=== PATIENT | male | born 1965 | race Caucasian/White ===

== ENCOUNTER → 2018-03-31 18:44 | Outpatient (CLI) | payer OTHER, SELFPAY ==
[2018-03-31 19:23] LABS: Cholesterol 179 mg/dL (200); High Density Lipoprotein 72 mg/dL; PSA,Total - Annual Screen 0.55 ng/mL (0.00-4.00); Triglycerides 74 mg/dL; Very Low Density Lipoprotein 15 mg/dL (5-40)
[2018-04-07 15:26] LABS: Cotinine Screen Blood None Detected (.); Nicotine Blood None Detected (.)
== END ==
PROVIDERS: Family Provider Family Medicine; PCP Family Medicine; Referring Provider Family Medicine; Visit Provider Family Medicine
DX: Z01.89 Encounter for other specified special examinations (principal); Z13.220 Encounter for screening for lipoid disorders; Z12.5 Encounter for screening for malignant neoplasm of prostate
CPT/HCPCS: 80061; 80323; 84153; G0103

== ENCOUNTER → 2020-12-12 15:04 | Outpatient (CLI) | payer BC, SELFPAY ==
[2020-12-12 17:48] LABS: Absolute Lymphocyte Count 3.35 X10^3/uL (0.83-4.51); Absolute Neutrophil Count 7.1 X10^3/uL (2.0-7.7); Basophil# 0.05 X10^3/uL; Basophil% 0.4 % (0-1); Eosinophil# 0.12 X10^3/uL; Hemoglobin 14.2 g/dL (13.0-16.5); Lymphocyte # 3.35 X10^3/ul (0.83-4.51); Lymphocyte % 28.9 % (19-41); Mean Corp Hgb Conc 33.8 g/dL (32-36); Mean Corpuscular Hgb 29.8 pg (27.0-32.0); Mean Corpuscular Volume 88.2 fL (80-94); Mean Platelet Vol. 9.8 fl (6.2-12.0); Monocyte# 0.89 X10^3/uL; Monocyte% 7.7 % (0-10); NRBC Flagged by Analyzer 0 % (0-5); Neutrophil # 7.12 X10^3/uL (2.7-7.7); Neutrophil % 61.5 % (47-70); Platelet Count 326 K/mm3 (150-450); RBC Distribution Width CV 12.4 % (11.6-14.6); RBC Distribution Width SD 40.4 fl (35.1-43.9); Red Blood Count 4.76 M/mm3 (4.6-6.2); White Blood Count 11.6 K/mm3 (4.4-11.0)
[2020-12-12 17:59] LABS: Erythrocyte Sedimentation Rate 19 mm/hr (0-20)
[2020-12-12 18:12] LABS: AST(SGOT) 20 U/L (15-37); Alanine Aminotransfer ALT/SGPT 35 U/L (16-61); Albumin, Serum 3.8 g/dL (3.2-5.0); Alkaline Phosphatase 89 U/L (45-117); Anion Gap 8 (5-15); BUN 15 mg/dL (7-18); BUN/Creat Ratio 13.3 RATIO (10-20); Calcium,Total 8.9 mg/dL (8.5-10.1); Chloride 102 mmol/L (98-107); Creatinine, Serum 1.13 mg/dL (0.70-1.30); EST Glomerular Filtration Rate 71 mL/min (>60); Est Glom Filt Rate - Afr Amer 86 mL/min (>60); Globulin 3.8 g/dL (2.2-4.2); Glucose 89 mg/dL (74-106); PSA,Total - Annual Screen 0.63 ng/mL (0.00-4.00); Protein, Total 7.6 g/dL (6.4-8.2); Rheumatoid Factor < 10.0 IU/mL (<15); Sodium Level 136 mmol/L (136-145)
[2020-12-15 09:34] LABS: ANTINUCLEAR ANTIBODIES DIRECT Negative (Negative)
== END ==
PROVIDERS: PCP Family Medicine; Referring Provider Family Medicine; Visit Provider Family Medicine
DX: M25.50 Pain in unspecified joint (principal); Z12.5 Encounter for screening for malignant neoplasm of prostate
CPT/HCPCS: 36415; 80053; 84153; 85025; 85652; 86038; 86431; G0103

== ENCOUNTER 2021-04-20 07:23 | Day surgery (SDC) | payer BC, SELFPAY ==
[2021-04-20] MEDS: Lactated Ringers 1,000 ML 15 ML IV (07:35)
[2021-04-20 07:42] VITALS: BP 124/82; PULSE 56; RESP 18; TEMP 36.3; O2SAT 96; BMI 33.8
--- NOTE | 2021-04-20 08:06 | H&P.OPEN ---
HPI - General HPI Narrative CELIA DURHAM, is a 56 M who presents for screening colonoscopy. Patient reports never having a colonoscopy in the past. He does not have any family history of colon cancer. He denies any abdominal pain or blood in his stool. [facility] Medical History (Updated 04/13/21 @ 15:03 by Grace Lee) Alcohol use Arthritis Chewing tobacco nicotine dependence Heartburn Wears contact lenses Home Medications ascorbic acid (vitamin C) [Vitamin C] 250 mg PO BID 04/13/21 [History Last Taken Unknown] aspirin [Baby Aspirin] 81 mg PO DAILY 04/13/21 [History Last Taken Unknown] cholecalciferol (vitamin D3) [Vitamin D3] 100 mcg PO DAILY 04/13/21 [History Last Taken Unknown] meloxicam 15 mg PO DAILY 04/13/21 [History Last Taken Unknown] multivitamin 1 tab PO DAILY 04/13/21 [History Last Taken Unknown] Allergy/AdvReac Type Severity Reaction Status Date / Time No Known Allergies Allergy Verified 04/20/21 07:42 Surgical History (Updated 04/13/21 @ 15:03 by Grace Lee) History of arthroplasty of both wrists History of nasal surgery Social History Smoking Status: Never smoker Past Medical/Surgical History Planned Operation Planned Operative Procedure/s: colonoscopy Previous Hospitalizations/Surgeries HX Hospitalizations: No Any Problems With Anesthesia: No You/Your Family Experience Fever (Hyperthermia) With Anes: No Cholinesterase deficiency: No Cardiovascular Hx Hypertension: No Respiratory Hx Sleep Apnea: No Hx Respiratory Tract Infection/Cold (presently): No Do You Snore Loudly (louder than talking or can be heard): No Do You Often Feel Tired/ Fatigued/ Sleepy Dring Daytime?: No Has Anyone Observed You Stop Breathing During Sleep?: No Result (for STOP score): Negative Smoking Status: Never smoker Gastrointestinal Special diet followed at home: No Neurological Does patient have nerve stimulator: No Miscellaneous Recent Exposure to Contagious Disease: No Allergies No Known Allergies Allergy (Verified 04/20/21 07:42) Discharge Is Pt Admitted From a [facility], or a [facility]: No Who Could Help: family After D/C, Where Do you Plan to Go: Return Home Vital Signs Vital Signs Vital Signs: 04/20/21 07:42 Temperature 97.3 F L Temperature Source Temporal Pulse Rate 56 L Respiratory Rate 18 Respiratory Pattern Normal Blood Pressure 124/82 H Blood Pressure Mean 96 Blood Pressure Source Monitor Blood Pressure Position Semi-Fowlers Blood Pressure Location Left Arm Pulse Ox 96 Oxygen Delivery Method Room Air Weight Weight: 235 lb 14.314 oz Body Mass Index (BMI) 33.8 Physical Exam Const alert and oriented x3 Resp normal respiratory effort and normal air movement Cardio regular rate and regular rhythm GI soft to palpation, non-tender and non-distended Assessment & Plan Assessment/Plan (1) Encounter for screening for malignant neoplasm of colon: PLAN: I explained endoscopy in detail to the patient. I explained the risks including but not limited to stroke or heart attack with anesthesia, perforation of the GI tract, bleeding, infection. I explained that any of these could necessitate further emergency surgery. The patient understands and all questions were answered sufficiently. The patient wishes to proceed with procedure. Paco Arciniega MD Pager: [phone] [address] [place] [address], [address] [place] [address] Office: Surgery Risks - Colonoscopy Risks Include but are not Limited To: Risks include but are not limited to: Bleeding, perforation requiring further surgery, inability to complete colonoscopy requiring barium enema.
[2021-04-20 08:30] VITALS: BP 112/74; BP 124/82; PULSE 79; RESP 18; TEMP 36.3; O2SAT 96
--- NOTE | 2021-04-20 08:30 | OP.COLON_ITS ---
Patient Name: True Quach Procedure Date: 04/20/2021 8:05 AM Date of : 1965 Age: 56 Procedure: Colonoscopy Indications: Screening for colorectal malignant neoplasm Providers: Paco Arciniega MD Referring MD: Paco Arciniega MD Medicines: Monitored Anesthesia Care Patient Profile: This is a 56 year old male. Refer to note in patient chart for documentation of history and physical. Last Colonoscopy: none. The patient's first colonoscopy is today. Complications: No immediate complications. Procedure: Pre-Anesthesia Assessment: - Prior to the procedure, a History and Physical was performed, and patient medications and allergies were reviewed. The patient's tolerance of previous anesthesia was also reviewed. The risks and benefits of the procedure and the sedation options and risks were discussed with the patient. All questions were answered, and informed consent was obtained. Prior Anticoagulants: The patient has taken no previous anticoagulant or antiplatelet agents. After reviewing the risks and benefits, the patient was deemed in satisfactory condition to undergo the procedure. After I obtained informed consent, the scope was passed under direct vision. Throughout the procedure, the patient's blood pressure, pulse, and oxygen saturations were monitored continuously. The pediatric colonoscope was introduced through the anus and advanced to the cecum, identified by appendiceal orifice and ileocecal valve. The colonoscopy was performed without difficulty. The patient tolerated the procedure well. The quality of the bowel preparation was good. Scope In: 8:15:40 AM Scope Withdrawal Time 0 hours 6 minutes 28 seconds Scope Out: 8:25:18 AM Total Procedure Duration Time 0 hours 9 minutes 38 seconds Findings: The entire examined colon appeared normal on direct and retroflexion views. Impression: - The entire examined colon is normal on direct and retroflexion views. - No specimens collected. Recommendation: - Discharge patient to home. - Resume previous diet. - Continue present medications. - Repeat colonoscopy in 10 years for screening purposes. Procedure Code(s): --- Professional --- 14246, Colonoscopy, flexible; diagnostic, including collection of specimen(s) by brushing or washing, when performed (separate procedure) Diagnosis Code(s): --- Professional --- Z12.11, Encounter for screening for malignant neoplasm of colon CPT copyright 2017 [employer]. All rights reserved. The codes documented in this report are preliminary and upon sander machine review may be revised to meet current compliance requirements. Paco Arciniega MD 04/20/2021 8:29:34 AM This report has been signed electronically. Number of Addenda: 0 Note Initiated On: 04/20/2021 8:05 AM
--- NOTE | 2021-04-20 08:30 | OP.CCLET_ITS ---
04/20/2021 Malvin Nagel [address] [place] [address] Re : Colonoscopy procedure for True Quach Dear Dr. Nagel This procedure was performed on Tuesday, April 20, 2021. My impressions and recommendations are as follows: Impressions : - The entire examined colon is normal on direct and retroflexion views. - No specimens collected. Recommendations : - Discharge patient to home. - Resume previous diet. - Continue present medications. - Repeat colonoscopy in 10 years for screening purposes. My findings are described in the full procedure note, which is enclosed. If I can be of further assistance, please feel free to contact me at Doctor phone number(s): , Work: . Sincerely, Paco Arciniega MD 04/20/2021 8:29:34 AM This report has been signed electronically.
[2021-04-20 08:35] VITALS: BP 122/80; BP 124/82; PULSE 60; RESP 18; O2SAT 95
[2021-04-20 08:40] VITALS: BP 124/82; BP 131/90; PULSE 63; RESP 18; O2SAT 95
[2021-04-20 08:45] VITALS: BP 112/74; BP 124/82; PULSE 48; RESP 18; TEMP 36.4; O2SAT 96
[2021-04-20 08:59] VITALS: BP 124/82
== END 2021-04-20 23:59 | disposition home or self-care (01) ==
LOC: EN 07:24 → AC 07:25
PROVIDERS: PCP Family Medicine; Referring Provider Surgery; Visit Provider Surgery
PROC: 0DJD8ZZ Inspection of Lower Intestinal Tract, Via Natural or Artificial Opening Endoscopic (ICD-10-PCS; CPT 45378; principal; 2021-04-20 08:25)
DX: Z12.11 Encounter for screening for malignant neoplasm of colon (principal)
CPT/HCPCS: 45378; 87426; C9803; J7120; J2405

== ENCOUNTER → 2021-12-21 | Outpatient (CLI) | payer BC, SELFPAY ==
[2021-12-21 10:02] LABS: Erythrocyte Sedimentation Rate 12 mm/hr (0-20)
[2021-12-21 10:04] LABS: Absolute Lymphocyte Count 2.69 X10^3/uL (0.83-4.51); Absolute Neutrophil Count 3.8 X10^3/uL (2.0-7.7); Basophil# 0.04 X10^3/uL; Basophil% 0.5 % (0-1); Eosinophil# 0.17 X10^3/uL; Eosinophils% 2.3 % (0-5); Hematocrit 43.6 % (40-54); Lymphocyte # 2.69 X10^3/ul (0.83-4.51); Mean Corp Hgb Conc 32.1 g/dL (32-36); Mean Corpuscular Hgb 28.9 pg (27.0-32.0); Mean Corpuscular Volume 90.1 fL (80-94); Mean Platelet Vol. 10.3 fl (6.2-12.0); Monocyte# 0.75 X10^3/uL; NRBC Flagged by Analyzer 0 % (0-5); Neutrophil # 3.81 X10^3/uL (2.7-7.7); Neutrophil % 50.9 % (47-70); Platelet Count 312 K/mm3 (150-450); RBC Distribution Width CV 12.7 % (11.6-14.6); RBC Distribution Width SD 42.2 fl (35.1-43.9); Red Blood Count 4.84 M/mm3 (4.6-6.2); White Blood Count 7.5 K/mm3 (4.4-11.0)
[2021-12-21 10:17] LABS: ALB/GLOB Ratio 1.2 RATIO (0.9-2.4); AST(SGOT) 28 U/L (15-37); Alanine Aminotransfer ALT/SGPT 38 U/L (16-61); Albumin, Serum 3.8 g/dL (3.2-5.0); Alkaline Phosphatase 79 U/L (45-117); Anion Gap 5 (5-15); BUN 22 mg/dL (7-18); BUN/Creat Ratio 20.6 RATIO (10-20); Calcium,Total 8.9 mg/dL (8.5-10.1); Chloride 106 mmol/L (98-107); Cholesterol 165 mg/dL (200); Creatinine, Serum 1.07 mg/dL (0.70-1.30); EST Glomerular Filtration Rate 75 mL/min (>60); Est Glom Filt Rate - Afr Amer 91 mL/min (>60); Ferritin 166 ng/mL (26-388); Globulin 3.3 g/dL (2.2-4.2); Glucose 118 mg/dL (74-106); High Density Lipoprotein 74 mg/dL; Iron 96 ug/dL (65-175); Magnesium 2.5 mg/dL (1.6-2.6); PSA,Total - Annual Screen 0.65 ng/mL (0.00-4.00); Potassium 4.9 mmol/L (3.5-5.1); Protein, Total 7.1 g/dL (6.4-8.2); Sodium Level 139 mmol/L (136-145); Thyroid Stim Hormone (TSH) 2.04 uIU/mL (0.358-3.74); Triglycerides 49 mg/dL; Uric Acid 5.5 mg/dL (3.5-7.2); Very Low Density Lipoprotein 10 mg/dL (5-40)
[2021-12-21 12:18] LABS: Vitamin B12 532 pg/mL (211-911); Vitamin D,25 Hydroxy 62.6 ng/mL
[2021-12-24 17:15] LABS: ANTINUCLEAR ANTIBODIES DIRECT Negative (Negative)
== END | disposition home or self-care (01) ==
LOC: MFPLAB 08:05
PROVIDERS: PCP Family Medicine; Referring Provider Family Medicine; Visit Provider Family Medicine
DX: G62.9 Polyneuropathy, unspecified (principal); M25.50 Pain in unspecified joint; Z13.220 Encounter for screening for lipoid disorders; Z12.5 Encounter for screening for malignant neoplasm of prostate
CPT/HCPCS: 36415; 80053; 80061; 82306; 82607; 82728; 83540; 83735; 84153; 84443; 84550; 85025; 85652; 86038; G0103

== ENCOUNTER 2022-03-16 13:12 | Observation (INO) | payer BC, SELFPAY ==
[2022-03-16] VITALS (11 sets, daily range): BP systolic 106–139; BP diastolic 65–89; PULSE 60–108; RESP 14–21; TEMP 36.1–37; O2SAT 94–98; BMI 33.8; BMI 32.7
--- NOTE | 2022-03-16 13:30 | EKG12_ITS ---
Test Reason : CP Blood Pressure : / mmHG Vent. Rate : 091 BPM Atrial Rate : 091 BPM P-R Int : 154 ms QRS Dur : 076 ms QT Int : 334 ms P-R-T Axes : 065 035 066 degrees QTc Int : 410 ms Normal sinus rhythm Normal ECG Confirmed by SUNITHA DIALLO, NOE ([id number]), manager editorial STEPHAN TY ([id number]) on 03/18/2022 1:20:37 PM Referred By: WALI/JEREMI Confirmed By:NOE HELTON MD
--- NOTE | 2022-03-16 13:35 | EDS_ITS ---
HPI History of Present Illness Chief Complaint: Shortness of Breath Narrative Narrative: 57-year-old male who denies significant past medical history with the exception of taking NSAIDs for arthritis presents with multiple complaints, but mainly feeling lightheaded this morning. He states he awoke around 9 hours ago and went to go to the bathroom. He felt very lightheaded and near syncopal. He denies any headache or chest pain. He states that he had a black, tarry bowel movement today. He denies any hematemesis. He went to urgent care where they performed an EKG and noted his tachycardia and sent him to the emergency department for further evaluation. He states that as long as he is sitting and not standing or walking, he is not lightheaded. He also felt short of breath, and when he went back to bed or walked from the bathroom, only 15 feet, he felt very short of breath. States he feels as if he cannot take a deep breath. [facility] Medical History Alcohol use Arthritis Chewing tobacco nicotine dependence Heartburn Wears contact lenses Home Medications ascorbic acid (vitamin C) 250 mg tablet (Vitamin C) 250 mg PO BID 04/13/21 [History Last Taken Unknown] aspirin 81 mg chewable tablet 81 mg PO DAILY 04/13/21 [History Last Taken Unknown] cholecalciferol (vitamin D3) 50 mcg (2,000 unit) capsule (Vitamin D3) 100 mcg PO DAILY 04/13/21 [History Last Taken Unknown] meloxicam 15 mg tablet 15 mg PO DAILY 04/13/21 [History Last Taken Unknown] multivitamin 1 tab PO DAILY 04/13/21 [History Last Taken Unknown] Allergy/AdvReac Type Severity Reaction Status Date / Time No Known Allergies Allergy Verified 03/16/22 13:13 Family History (Updated 03/16/22 @ 16:[address] Abdoul Bah DO) Father Peptic ulcer disease Surgical History History of arthroplasty of both wrists History of nasal surgery Social History (Updated 03/16/22 @ 16:[address] Abdoul Bah DO) Smoking Status: Never smoker Smokeless tobacco user: chewing tobacco alcohol intake: current alcohol intake frequency: 0-2 drinks per day ROS ROS ED ROS Narrative Constitutional: No fever, no chills. HEENT: No sore throat. No neck pain. No loss of vision. No rhinorrhea. Cardiovascular: No chest pain. No palpitations. No pedal edema. Respiratory: No cough, positive shortness of breath. Abdominal: No abdominal pain. No nausea. No vomiting. No hematemesis. Positive black, tarry stool this morning. Genitourinary: No dysuria. No hematuria. Musculoskeletal: No myalgias. No arthralgias. Neurologic: No headaches. No dizziness. Positive near syncope/lightheadedness. Skin: No rash. No change in color. Psychiatric: No depression. No anxiety. EXAM Physical Exam Narrative Exam Narrative: Afebrile. Vital signs noted. HEENT: Normocephalic. Atraumatic. PERRL, EOMI. Neck soft and supple. No point tenderness or step off. Cardiovascular: Positive tachycardia. No murmurs, rubs, or gallops appreciated. Respiratory: No tachypnea. Lungs clear to auscultation bilaterally. Gastrointestinal: Abdomen soft, nontender, with normoactive bowel sounds. No rebound or guarding. Neurological: Awake. Alert. Nonfocal, nonlateralizing. Skin: No rash. Normal color. No pallor. Musculoskeletal: No pedal edema. Full range of motion extremities. Const Vital Signs: 03/16/22 13:13 03/16/22 13:35 03/16/22 14:52 Temperature 97 F L Temperature Source Temporal Pulse Rate 108 H Pulse Rate [Lying] 81 Pulse Rate [Sitting (for 1 minute prior to obtaining)] 90 Respiratory Rate 14 Respiratory Effort Normal Non-Labored Respiratory Depth Normal Respiratory Pattern Normal Blood Pressure 139/89 H Blood Pressure [Lying] 129/73 H Blood Pressure [Sitting (for 1 minute prior to obtaining)] 121/77 H Blood Pressure [Standing (for 1 minute prior to obtaining)] 119/89 H Blood Pressure Mean 105 Blood Pressure Mean [Lying] 91 Blood Pressure Mean [Sitting (for 1 minute prior to obtaining)] 91 Blood Pressure Mean [Standing (for 1 minute prior to obtaining)] 99 Pulse Ox 98 Oxygen Delivery Method Room Air Room Air 03/16/22 15:12 03/16/22 15:54 Temperature 97.8 F Temperature Source Temporal Pulse Rate 85 82 Pulse Rate [Lying] Pulse Rate [Sitting (for 1 minute prior to obtaining)] Respiratory Rate 21 H 20 H Respiratory Effort Respiratory Depth Respiratory Pattern Blood Pressure 135/87 H 135/87 H Blood Pressure [Lying] Blood Pressure [Sitting (for 1 minute prior to obtaining)] Blood Pressure [Standing (for 1 minute prior to obtaining)] Blood Pressure Mean 103 103 Blood Pressure Mean [Lying] Blood Pressure Mean [Sitting (for 1 minute prior to obtaining)] Blood Pressure Mean [Standing (for 1 minute prior to obtaining)] Pulse Ox 98 98 Oxygen Delivery Method Room Air Room Air MDM MDM MDM Narrative Medical decision making narrative: In the differential diagnosis is upper GI bleeding secondary to gastritis from NSAID use versus peptic ulcer disease versus lower on the differential pulmonary embolism because of his shortness of breath, versus anemia. Comprehensive work- up was pursued. EKG from outside facility was obtained and reviewed which shows sinus tachycardia at [address] changes. This was from the urgent care and interpreted by myself. Additionally, I obtained an EKG here which demonstrates normal sinus rhythm at 91 bpm without ectopy or acute ST changes, no STEMI. I will work him up with CBC, CMP, lipase, troponin, D-dimer, orthostatics, and perform a rectal examination. I do not feel CT imaging is indicated currently as he is not having any abdominal pain. I reviewed the patient's laboratory work, he has a slightly elevated white count of 14.4 which I think is nonspecific, hemoglobin stable at 10.7, platelet count normal at 270. D-dimer is normal at less than 0.27, so I do not think that his shortness of breath is secondary to a pulmonary embolism. His tachycardia has also resolved. In review of his CMP has a normal sodium of 141, potassium normal at 4.9, BUN elevated at 72 with a creatinine of 0.98. This is concerning for upper GI bleed. Glucose is 114 with a normal anion gap of 8. High- sensitivity troponin is under the limit and normal at 51. Lipase normal at 117. Chaperoned rectal examination did reveal black stool which was Hemoccult positive. Patient states that he had Dr. Arciniega perform his colonoscopy in the past. I discussed this with him and he is willing to be consulted as needed to perform endoscopy. Although his orthostatics are negative, given his black Hemoccult positive stool, patient will be discussed with the hospitalist for admission. I discussed the patient with Dr. Bah. Patient is in stable co ndition. Lab Data Attestation: I reviewed the patient's lab results. Labs: Laboratory Results - last 24 hr 03/16/22 03/16/22 03/16/22 14:00 14:00 14:10 WBC 14.4 H RBC 3.65 L Hgb 10.7 L Hct 32.2 L MCV 88.2 MCH 29.3 MCHC 33.2 RDW Std Deviation 39.2 RDW Coeff of Kandis 12.1 Plt Count 270 MPV 9.4 Immature Gran % (Auto) 0.600 Neut % (Auto) 74.5 H Lymph % (Auto) 17.8 L [place] % (Auto) 6.6 Eos % (Auto) 0.2 Baso % (Auto) 0.3 Absolute Neuts (auto) 10.7 H Absolute Lymphs (auto) 2.56 Nucleated RBC % 0 D-Dimer Quant (PE/DVT) < 0.27 L Sodium 141 Potassium 4.9 Chloride 110 H Carbon Dioxide 23.0 Anion Gap 8 BUN 72 H Creatinine 0.98 Estim Creat Clear Calc 83.80 Est GFR (MDRD) Af Amer 100 Est GFR (MDRD) Non-Af 83 BUN/Creatinine Ratio 73.2 H Glucose 114 H Calcium 8.9 Total Bilirubin 0.20 AST 15 ALT 25 Alkaline Phosphatase 62 Troponin I High Sens 51 Total Protein 6.3 L Albumin 3.3 Globulin 3.0 Albumin/Globulin Ratio 1.1 Lipase 117 Radiography Diagnostic Testing: Clinical Impression(s) from Imaging Studies Chest X-Ray 03/16/22 15:15 IMPRESSION: No radiographic evidence of acute cardiopulmonary disease. Electronically Signed: Dagoberto Keys MD at 15:48 EST , Discharge Plan Dx/Rx/DC Orders Clinical Impression: GI bleed, Melena, Lightheadedness Disposition Disposition: [facility]
[2022-03-16 14:08] LABS: Absolute Lymphocyte Count 2.56 X10^3/uL (0.83-4.51); Absolute Neutrophil Count 10.7 X10^3/uL (2.0-7.7); Basophil# 0.04 X10^3/uL; Basophil% 0.3 % (0-1); Eosinophil# 0.03 X10^3/uL; Eosinophils% 0.2 % (0-5); Hematocrit 32.2 % (40-54); Hemoglobin 10.7 g/dL (13.0-16.5); Lymphocyte # 2.56 X10^3/ul (0.83-4.51); Lymphocyte % 17.8 % (19-41); Mean Corp Hgb Conc 33.2 g/dL (32-36); Mean Corpuscular Hgb 29.3 pg (27.0-32.0); Mean Corpuscular Volume 88.2 fL (80-94); Mean Platelet Vol. 9.4 fl (6.2-12.0); Monocyte# 0.95 X10^3/uL; Monocyte% 6.6 % (0-10); NRBC Flagged by Analyzer 0 % (0-5); Neutrophil # 10.71 X10^3/uL (2.7-7.7); Neutrophil % 74.5 % (47-70); Platelet Count 270 K/mm3 (150-450); RBC Distribution Width CV 12.1 % (11.6-14.6); RBC Distribution Width SD 39.2 fl (35.1-43.9); Red Blood Count 3.65 M/mm3 (4.6-6.2); White Blood Count 14.4 K/mm3 (4.4-11.0)
[2022-03-16] MEDS: 0.9% Normal Saline 1,000 ML 1000 ML IV (14:15)
[2022-03-16 14:31] LABS: ALB/GLOB Ratio 1.1 RATIO (0.9-2.4); AST(SGOT) 15 U/L (15-37); Alanine Aminotransfer ALT/SGPT 25 U/L (16-61); Albumin, Serum 3.3 g/dL (3.2-5.0); Alkaline Phosphatase 62 U/L (45-117); Anion Gap 8 (5-15); BUN 72 mg/dL (7-18); BUN/Creat Ratio 73.2 RATIO (10-20); Calcium,Total 8.9 mg/dL (8.5-10.1); Chloride 110 mmol/L (98-107); Creatinine, Serum 0.98 mg/dL (0.70-1.30); EST Glomerular Filtration Rate 83 mL/min (>60); Est Glom Filt Rate - Afr Amer 100 mL/min (>60); Glucose 114 mg/dL (74-106); Lipase 117 U/L (73-393); Potassium 4.9 mmol/L (3.5-5.1); Protein, Total 6.3 g/dL (6.4-8.2); Sodium Level 141 mmol/L (136-145); Troponin-I HS 51 pg/mL (3.0-78.0)
[2022-03-16 14:33] LABS: D-Dimer Quantitative (DVT/PE) < 0.27 FEU/ug/m (0.27-0.49)
--- NOTE | 2022-03-16 15:15 | RAD_ITS ---
EXAM: XR CHEST, 1 VIEW CLINICAL INDICATION: shortness of breath TECHNIQUE: Frontal view of the chest. This report was created using Wear report generation technology. COMPARISON: None. FINDINGS: LUNGS AND PLEURAL SPACES: Unremarkable. No consolidation or edema. No pneumothorax. No effusion. HEART: Unremarkable. Cardiac silhouette not enlarged. MEDIASTINUM: Central airways and mediastinal contour are unremarkable. BONES/JOINTS: Unremarkable. SOFT TISSUES: Unremarkable. RAD/Chest 1 View (Portable) IMPRESSION: No radiographic evidence of acute cardiopulmonary disease. Electronically Signed: Dagoberto Keys MD at 15:48 EST ,
--- NOTE | 2022-03-16 16:07 | PCM.HP.STD ---
[facility] - General General Date of Service: 03/16/22 Chief Complaint: Shortness of breath. weakness. HPI Narrative CELIA DURHAM, is a 57 M who presents with shortness of breath and weakness. The symptoms began today. Was feeling well yesterday but did have some abdominal discomfort. But then the symptoms began today. Patient did have dark tarry stools which she does not have normally. Denies any abdominal pain today. Presented here in his hemoglobin was 10.7, back in December, his hemoglobin was 14. Patient does take aspirin and meloxicam but takes ibuprofen rarely. Patient did have a positive Hemoccult in the emergency room. Patient has never had a GI bleed before. Many years ago, patient did have severe epistaxis due to a burst blood vessels that did require surgery but denies any other bleeding issues since then. [facility] Medical History Alcohol use Arthritis Chewing tobacco nicotine dependence Heartburn Wears contact lenses Home Medications ascorbic acid (vitamin C) 250 mg tablet (Vitamin C) 250 mg PO BID 04/13/21 [History Last Taken Unknown] aspirin 81 mg chewable tablet 81 mg PO DAILY 04/13/21 [History Last Taken Unknown] cholecalciferol (vitamin D3) 50 mcg (2,000 unit) capsule (Vitamin D3) 100 mcg PO DAILY 04/13/21 [History Last Taken Unknown] meloxicam 15 mg tablet 15 mg PO DAILY 04/13/21 [History Last Taken Unknown] multivitamin 1 tab PO DAILY 04/13/21 [History Last Taken Unknown] Allergy/AdvReac Type Severity Reaction Status Date / Time No Known Allergies Allergy Verified 03/16/22 13:13 Family History (Updated 03/16/22 @ 16:[address] Abdoul Bah DO) Father Peptic ulcer disease Surgical History History of arthroplasty of both wrists History of nasal surgery Social History (Updated 03/16/22 @ 16:[address] Abdoul Bah DO) Smoking Status: Never smoker Smokeless tobacco user: chewing tobacco alcohol intake: current alcohol intake frequency: 0-2 drinks per day ROS ROS Narrative All review of systems were negative except as mentioned above in the history of present illness and the other review of systems. Vital Signs Vital Signs Vital Signs: 03/16/22 13:13 03/16/22 13:35 03/16/22 14:52 Temperature 36.1 C L Temperature Source Temporal Pulse Rate 108 H Pulse Rate [Lying] 81 Pulse Rate [Sitting (for 1 minute prior to obtaining)] 90 Respiratory Rate 14 Respiratory Effort Normal Non-Labored Respiratory Depth Normal Respiratory Pattern Normal Blood Pressure 139/89 H Blood Pressure [Lying] 129/73 H Blood Pressure [Sitting (for 1 minute prior to obtaining)] 121/77 H Blood Pressure [Standing (for 1 minute prior to obtaining)] 119/89 H Blood Pressure Mean 105 Blood Pressure Mean [Lying] 91 Blood Pressure Mean [Sitting (for 1 minute prior to obtaining)] 91 Blood Pressure Mean [Standing (for 1 minute prior to obtaining)] 99 Pulse Ox 98 Oxygen Delivery Method Room Air Room Air 03/16/22 15:12 03/16/22 15:54 Temperature 36.6 C Temperature Source Temporal Pulse Rate 85 82 Pulse Rate [Lying] Pulse Rate [Sitting (for 1 minute prior to obtaining)] Respiratory Rate 21 H 20 H Respiratory Effort Respiratory Depth Respiratory Pattern Blood Pressure 135/87 H 135/87 H Blood Pressure [Lying] Blood Pressure [Sitting (for 1 minute prior to obtaining)] Blood Pressure [Standing (for 1 minute prior to obtaining)] Blood Pressure Mean 103 103 Blood Pressure Mean [Lying] Blood Pressure Mean [Sitting (for 1 minute prior to obtaining)] Blood Pressure Mean [Standing (for 1 minute prior to obtaining)] Pulse Ox 98 98 Oxygen Delivery Method Room Air Room Air Weight Weight: 107 kg Body Mass Index (BMI) 33.8 Physical Exam Narrative - Physical Exam General: Alert, Oriented x3, Cooperative HEENT: Atraumatic, PERRLA, EOMI, Normocephalic Oral: Moist Mucosa, No Gingival or Mucosal Lesions/ Ulcerations Neck: Supple, No JVD, Negative Carotid Bruits Lungs: Clear to auscultation, Normal air movement Cardiovascular: Regular rate, Normal S1, Normal S2, No murmurs Abdomen: Bowel Sounds Present, Soft, Non Tender, Non-Distended, No Hepato-splenomegaly Extremities: No clubbing, No cyanosis, No edema, Capillary Refill Less than 3 Seconds Skin: No rashes, No breakdown Musculoskeletal: No Tenderness to Palpation of Joints or Extremities Neurological: Neuro grossly intact Psych/Mental Status: Normal Affect, Appropriate Results Lab / Micro Data Attestation: I reviewed the patient's lab results. Result Diagrams: 03/16/22 14:00 03/16/22 14:00 Labs: Laboratory Results - last 24 hr 03/16/22 14:00: WBC 14.4 H, RBC 3.65 L, Hgb 10.7 L, Hct 32.2 L, MCV 88.2, MCH 29.3, MCHC 33.2, RDW Std Deviation 39.2, RDW Coeff of Kandis 12.1, Plt Count 270, MPV 9.4, Immature Gran % (Auto) 0.600, Neut % (Auto) 74.5 H, Lymph % (Auto) 17.8 L, [place] % (Auto) 6.6, Eos % (Auto) 0.2, Baso % (Auto) 0.3, Absolute Neuts (auto) 10.7 H, Absolute Lymphs (auto) 2.56, Nucleated RBC % 0 03/16/22 14:00: Sodium 141, Potassium 4.9, Chloride 110 H, Carbon Dioxide 23.0, Anion Gap 8, BUN 72 H, Creatinine 0.98, Estim Creat Clear Calc 83.80, Est GFR (MDRD) Af Amer 100, Est GFR (MDRD) Non-Af 83, BUN/Creatinine Ratio 73.2 H, Glucose 114 H, Calcium 8.9, Total Bilirubin 0.20, AST 15, ALT 25, Alkaline Phosphatase 62, Troponin I High Sens 51, Total Protein 6.3 L, Albumin 3.3, Globulin 3.0, Albumin/Globulin Ratio 1.1, Lipase 117 03/16/22 14:10: D-Dimer Quant (PE/DVT) < 0.27 L Micro: Microbiology 03/16/22 15:17 Stool Stool Occult Blood (BASIM) - Final Occult Blood Positive EKG Initial EKG: Attestation: I personally reviewed and interpreted this EKG as follows: Prior EKG tracings: available for review EKG Rhythm Intrepretation: Sinus Rhythm Radiology Impression Chest X-Ray 03/16/22 15:15 IMPRESSION: No radiographic evidence of acute cardiopulmonary disease. Electronically Signed: Dagoberto Keys MD at 15:48 EST Reading Location ID and State: [facility] / [place] , Service support , Assessment & Plan Assessment/Plan (1) GI bleed: PLAN: Positive Hemoccult Suspected upper. Patient had a normal colonoscopy back on April 20, 2021. Dr. Arciniega was contacted by ED and will see the patient in consultation. Anticipate endoscopy the 6 for additional surgery merits of the timing. Start pantoprazole IV 40 mg twice daily Full liquid diet for now Hold meloxicam and aspirin (2) Acute blood loss anemia: PLAN: Hemoglobin was 14 back in December and is now 10.7. Given his symptomatology, I suspect this is all acute Monitor for now. No needs transfusion was hemoglobin less than or equal to 7. PLAN: Plan Chronic stable conditions Arthritis: Hold meloxicam. As needed acetaminophen and oxycodone VTE prophylaxis with SCDs. Chemical prophylaxis contraindicated with GI bleed. Charges/Coding Visit Charges Inpatient E&M: 10797 Init Hosp L2
--- NOTE | 2022-03-16 16:08 | NURSING ---
MED SURG JOPPERI UPPER GI BLEED
[2022-03-16] MEDS: 0.9% Normal Saline 1,000 ML 150 ML IV ×2 (17:57→20:52)
--- NOTE | 2022-03-16 18:52 | EX.PCM.CON.S ---
Assessment & Plan Assessment/Plan (1) GI bleed: (2) Melena: PLAN: Plan Patient was lightheaded and had melanotic stools earlier today. I discussed EGD with the patient. I explained endoscopy in detail to the patient. I explained the risks including but not limited to stroke or heart attack with anesthesia, perforation of the GI tract, bleeding, infection. I explained that any of these could necessitate further emergency surgery. The patient understands and all questions were answered sufficiently. The patient wishes to proceed with procedure. Paco Arciniega MD Pager: [facility] [address] [place] [address], [address] [place] [address] Office: HPI Consult Data Date of Consult: 03/16/22 HPI Narrative HPI Narrative: CELIA DURHAM, is a 57 M who presents with melena. Patient had black bowel movements this morning. He does describe some indigestion and he does take aspirin. He has not had any black stools prior to this. He had a colonoscopy recently. He denies any nausea or vomiting. Denies any epigastric pain. [facility] Medical History Alcohol use Arthritis Chewing tobacco nicotine dependence GERD (gastroesophageal reflux disease) Heartburn Non-smoker Rheumatoid arthritis Wears contact lenses Home Medications ascorbic acid (vitamin C) 250 mg tablet (Vitamin C) 500 mg PO DAILY vitamin 04/13/21 [History Last Taken Unknown] aspirin 81 mg chewable tablet 81 mg PO DAILY antiplatelet 04/13/21 [History Last Taken 03/16/22 07:30] cholecalciferol (vitamin D3) 50 mcg (2,000 unit) capsule (Vitamin D3) 125 mcg PO DAILY vitamin 04/13/21 [History Last Taken 03/16/22 07:30] meloxicam 15 mg tablet 15 mg PO DAILY arthritis 04/13/21 [History Last Taken 03/16/22 07:30] multivitamin 1 tab PO DAILY vitamin 04/13/21 [History Last Taken 03/16/22 07:30] melatonin 10 mg tablet 15 mg PO QHS sleep 03/16/22 [History Last Taken 03/15/22 22:25] Allergy/AdvReac Type Severity Reaction Status Date / Time No Known Allergies Allergy Verified 03/16/22 13:13 Family History (Updated 03/16/22 @ 16:[address] Abdoul Bah DO) Father Peptic ulcer disease Surgical History History of arthroplasty of both wrists History of nasal surgery Social History (Updated 03/16/22 @ 16:[address] Abdoul Bah DO) Smoking Status: Never smoker Smokeless tobacco user: chewing tobacco alcohol intake: current alcohol intake frequency: 0-2 drinks per day ROS Constitutional Constitutional: Denies anorexia, chills or fatigue Eyes Eyes: Denies blurry vision ENT HEENT: Denies abnormal hearing Cardiovascular Cardiovascular: Denies chest pain Respiratory/Chest Respiratory/Chest: Denies cough or dyspnea Gastrointestinal Gastrointestinal: Reports melena; Denies abdominal pain, change in bowel habits, diarrhea, nausea, rectal bleeding or vomiting Genitourinary Genitourinary: Denies change in urinary stream Musculoskeletal Musculoskeletal: Denies back pain Integumentary Integumentary: Denies jaundice Neurologic Neurologic: Denies dizziness Psychiatric Psychiatric: Denies anxiety Endocrine Endocrinology: Denies heat intolerance Lab / Micro Data Result Diagrams: 03/16/22 14:00 03/16/22 14:00 Labs: Laboratory Results - last 24 hr 03/16/22 14:00: WBC 14.4 H, RBC 3.65 L, Hgb 10.7 L, Hct 32.2 L, MCV 88.2, MCH 29.3, MCHC 33.2, RDW Std Deviation 39.2, RDW Coeff of Kandis 12.1, Plt Count 270, MPV 9.4, Immature Gran % (Auto) 0.600, Neut % (Auto) 74.5 H, Lymph % (Auto) 17.8 L, [place] % (Auto) 6.6, Eos % (Auto) 0.2, Baso % (Auto) 0.3, Absolute Neuts (auto) 10.7 H, Absolute Lymphs (auto) 2.56, Nucleated RBC % 0 03/16/22 14:00: Sodium 141, Potassium 4.9, Chloride 110 H, Carbon Dioxide 23.0, Anion Gap 8, BUN 72 H, Creatinine 0.98, Estim Creat Clear Calc 83.80, Est GFR (MDRD) Af Amer 100, Est GFR (MDRD) Non-Af 83, BUN/Creatinine Ratio 73.2 H, Glucose 114 H, Calcium 8.9, Total Bilirubin 0.20, AST 15, ALT 25, Alkaline Phosphatase 62, Troponin I High Sens 51, Total Protein 6.3 L, Albumin 3.3, Globulin 3.0, Albumin/Globulin Ratio 1.1, Lipase 117 03/16/22 14:10: D-Dimer Quant (PE/DVT) < 0.27 L Micro: Microbiology 03/16/22 15:17 Stool Stool Occult Blood (BASIM) - Final Occult Blood Positive Radiology Impression Chest X-Ray 03/16/22 15:15 IMPRESSION: No radiographic evidence of acute cardiopulmonary disease. Electronically Signed: Dagoberto Keys MD at 15:48 EST ,
--- NOTE | 2022-03-16 19:20 | IMM_PTH ---
PATIENT: CEILA DURHAM LOC: MS3 U#:[id number] AGE/SX: 57/M RO[place]: [facility] [place] RE03/16/[address]: Dr. Chacha Obrien DO : 1965 BED: 1 DIS: 03/17/2022 SPEC #: [id number] RECD: 03/19/22 07:27 STATUS: ANIL REQ #: [id number] ROSA ISELA: 03/16/22 19:[address]: Paco Arciniega DEPT: IMMUNOHISTOCHEMISTRY RECD BY: Regina Velez ENTERED: 03/19/22 07:28 SP TYPE: IMMUNO OTHR DR: MD Dr. Abdoul Newsome DO Dr. Kathryn Lee, DO Tissues: A - Stomach, NOS Procedures: H Pylori (initial) PHYSICIAN & INSTITUTION [place] [address] SPECIMEN INFORMATION: Tissue Source: A ? Antrum biopsy Clinical Info: GI bleed Specimen Number: [id number] CPT code: 03895 METHODOLOGY: Deparaffinized sections of prefer/formalin-fixed tissue or PAP/DQ stained slides are incubated with monoclonal/polyclonal antibodies/oligonucleotide probes. Localization is made via biotin free immunoperoxidase method. Appropriate controls are performed and reacted as expected. Results on target cell population are indicated in the following table: RESULTS: ANTIBODY / CLONE RESULT Block A H Pylori (polyclonal) negative These tests were developed and their performance characteristics determined by [facility]. They may not have been cleared or approved by the U.S. Food and Drug Administration. The FDA has determined that such clearance or approval is not necessary. The above immunohistochemical/dualISH markers are ordered and reviewed by the Pathologist. INTERPRETATION: A. Antrum, biopsy: Negative for Helicobacter pylori organisms. AM:ирина 03/20/2022
--- NOTE | 2022-03-16 19:20 | EGD_PTH ---
PATIENT: CELIA DURHAM LOC: MS3 U#:[id number] AGE/SX: 57/M [place] [facility] [place] RE03/16/[address]: Dr. Chacha Obrien DO : 1965 BED: 1 DIS: 03/17/2022 SPEC #: [id number] RECD: 03/16/22 20:06 STATUS: ANIL REJh #: [id number] ROSA ISELA: 03/16/22 19:[address]: Paco Arciniega DEPT: SURGICAL PATHOLOGY RECD BY: Tomeka Cardona ENTERED: 03/18/22 11:58 SP TYPE: EGD BIOPSY OTHR DR: MD Dr. Fer Lopez MD Dr. Eric Jopperi, DO Dr. Kathryn Lee, DO Tissues: A - Gastric mucous membrane B - Stomach, NOS Procedures: Surgery Specimen Level IV Comments: @ Ordering doctor for SUIV edited from to @ by BOWEN at 03/19/22726 @ Submitting doctor edited from to @ by RGOOD at 03/19/22726 HEADER OPERATION: EGD with biopsies (MAC) PRE-OP DIAGNOSIS: GI bleed TISSUE SUBMITTED: A ? Antrum biopsy for H. pylori and path, B ? Gastroesophageal junction biopsy MICROSCOPIC DIAGNOSIS A. Antrum, biopsy: Mild gastritis. See microscopic description and comment. B. Gastroesophageal junction, biopsy: Fragments of squamous mucosa with moderate chronic inflammation. SJ:charlette 03/19/2022 COMMENT A. The results of immunohistochemistry for Helicobacter pylori will be reported separately ([id number]). MICROSCOPIC DESCRIPTION Slides are reviewed. A. The specimen shows fragments of gastric mucosa with chronic inflammatory cell infiltrates in the lamina propria consisting of lymphocytes and plasma cells, consistent with mild chronic gastritis. GROSS DESCRIPTION A - Received in fixative is one container labeled with the patient's name and designated antrum biopsy. The specimen consists of two irregular fragments of light greene soft tissue that in aggregate measure 0.6 x 0.3 x 0.1 cm. The specimen is totally submitted in one cassette. B - Received in fixative is one container labeled with the patient's name and designated GE junction biopsy. The specimen consists of multiple irregular fragments of light greene soft tissue that in aggregate measure 0.8 x 0.3 x 0.1 cm. The specimen is totally submitted in one cassette. / SJ:rg 03/18/2022 TC:3 CPT: 28159 x2
--- NOTE | 2022-03-16 19:55 | OP.EGD_ITS ---
Patient Name: True Quach Procedure Date: 03/16/2022 7:28 PM Date of : 1965 Age: 57 Procedure: Upper GI endoscopy Indications: Melena Providers: Paco Arciniega MD Medicines: Monitored Anesthesia Care Patient Profile: This is a 57 year old male. Refer to note in patient chart for documentation of history and physical. Complications: No immediate complications. Estimated blood loss: Minimal. Procedure: Pre-Anesthesia Assessment: - Prior to the procedure, a History and Physical was performed, and patient medications and allergies were reviewed. The patient's tolerance of previous anesthesia was also reviewed. The risks and benefits of the procedure and the sedation options and risks were discussed with the patient. All questions were answered, and informed consent was obtained. Prior Anticoagulants: The patient has taken aspirin. After reviewing the risks and benefits, the patient was deemed in satisfactory condition to undergo the procedure. After obtaining informed consent, the endoscope was passed under direct vision. Throughout the procedure, the patient's blood pressure, pulse, and oxygen saturations were monitored continuously. The gastroscope was introduced through the mouth, and advanced to the third part of duodenum. The upper GI endoscopy was accomplished without difficulty. The patient tolerated the procedure well. Scope In: 7:41:55 PM Scope Out: 7:49:10 PM Total Procedure Duration Time 0 hours 7 minutes 15 seconds Findings: Esophagitis with bleeding was found at the gastroesophageal junction. Biopsies were taken with a cold forceps for histology. Striped mildly erythematous mucosa without bleeding was found in the prepyloric region of the stomach. Biopsies were taken with a cold forceps for Helicobacter pylori testing. The examined duodenum was normal. Impression: - Esophagitis. Biopsied. - Erythematous mucosa in the prepyloric region of the stomach. Biopsied. - Normal examined duodenum. Recommendation: - [facility] care. - Resume previous diet. - Continue present medications. - Await pathology results. Procedure Code(s): --- Professional --- 44702, Esophagogastroduodenoscopy, flexible, transoral; with biopsy, single or multiple Diagnosis Code(s): --- Professional --- K20.9, Esophagitis, unspecified K31.89, Other diseases of stomach and duodenum K92.1, Melena (includes Hematochezia) CPT copyright 2017 [employer]. All rights reserved. The codes documented in this report are preliminary and upon cook soup review may be revised to meet current compliance requirements. Paco Arciniega MD 03/16/2022 7:55:23 PM This report has been signed electronically. Number of Addenda: 0 Note Initiated On: 03/16/2022 7:28 PM
--- NOTE | 2022-03-16 19:56 | OP.CCLET_ITS ---
03/16/2022 Malvin Nagel [address] [place] [address] Re : Upper GI endoscopy procedure for True Quach Dear Dr. Nagel This procedure was performed on Wednesday, March 16, 2022. My impressions and recommendations are as follows: Impressions : - Esophagitis. Biopsied. - Erythematous mucosa in the prepyloric region of the stomach. Biopsied. - Normal examined duodenum. Recommendations : - [facility] to [facility]. - Resume previous diet. - Continue present medications. - Await pathology results. My findings are described in the full procedure note, which is enclosed. If I can be of further assistance, please feel free to contact me at Doctor phone number(s): , Work: . Sincerely, Paco Arciniega MD 03/16/2022 7:55:23 PM This report has been signed electronically.
--- NOTE | 2022-03-16 19:57 | PCM.PN.BLA ---
Progress Note I performed EGD this evening. No ulcer or bleeding in stomach or duodenum. There was an irritated area in the GE junction. Unsure if malignant or if it is esophagitis. Biopsies were obtained. Will order diet and PPI/Carafate. If Hb ok and orthostatics are ok he may go home in AM and follow up in my office for path. Paco Arciniega
[2022-03-16] MEDS: Sucralfate 1 GM Tablet PO (20:52)
[2022-03-16] MEDS: Ascorbic Acid 500 MG Tablet PO (20:53)
[2022-03-16 21:37] LABS: Absolute Lymphocyte Count 5.38 X10^3/uL (0.83-4.51); Absolute Neutrophil Count 6.6 X10^3/uL (2.0-7.7); Basophil# 0.05 X10^3/uL; Basophil% 0.4 % (0-1); Eosinophil# 0.13 X10^3/uL; Hematocrit 28.3 % (40-54); Hemoglobin 9.4 g/dL (13.0-16.5); Lymphocyte # 5.38 X10^3/ul (0.83-4.51); Lymphocyte % 41.4 % (19-41); Mean Corp Hgb Conc 33.2 g/dL (32-36); Mean Corpuscular Hgb 29.9 pg (27.0-32.0); Mean Corpuscular Volume 90.1 fL (80-94); Mean Platelet Vol. 9.4 fl (6.2-12.0); Monocyte# 0.75 X10^3/uL; Monocyte% 5.8 % (0-10); NRBC Flagged by Analyzer 0 % (0-5); Neutrophil # 6.64 X10^3/uL (2.7-7.7); Neutrophil % 51.1 % (47-70); POSITIVE DIFFERENTIAL YES; Platelet Count 230 K/mm3 (150-450); RBC Distribution Width CV 12.4 % (11.6-14.6); RBC Distribution Width SD 39.9 fl (35.1-43.9); Red Blood Count 3.14 M/mm3 (4.6-6.2)
[2022-03-16 21:52] LABS: Differential Indicated SCAN CRITERIA MET
[2022-03-16 22:01] LABS: Platelet Estimate ADEQUATE (ADEQ)
[2022-03-16 22:02] LABS: Anisocytosis RARE; Macrocytosis RARE; Red Cell Morphology N CHROM NORMAL (NORM C&C)
[2022-03-17] MEDS: 0.9% Normal Saline 1,000 ML 150 ML IV (02:40)
[2022-03-17 02:45] VITALS: BP 95/60; PULSE 68; RESP 18; TEMP 36.9; O2SAT 98
[2022-03-17] MEDS: Sucralfate 1 GM Tablet PO ×2 (06:04→11:10)
[2022-03-17 06:51] LABS: Absolute Lymphocyte Count 4.25 X10^3/uL (0.83-4.51); Absolute Neutrophil Count 5.5 X10^3/uL (2.0-7.7); Basophil# 0.04 X10^3/uL; Basophil% 0.4 % (0-1); Eosinophil# 0.12 X10^3/uL; Eosinophils% 1.1 % (0-5); Hematocrit 25.8 % (40-54); Hemoglobin 8.2 g/dL (13.0-16.5); Lymphocyte # 4.25 X10^3/ul (0.83-4.51); Lymphocyte % 39.2 % (19-41); Mean Corp Hgb Conc 31.8 g/dL (32-36); Mean Corpuscular Hgb 29.1 pg (27.0-32.0); Mean Corpuscular Volume 91.5 fL (80-94); Mean Platelet Vol. 9.9 fl (6.2-12.0); Monocyte# 0.89 X10^3/uL; Monocyte% 8.2 % (0-10); NRBC Flagged by Analyzer 0 % (0-5); Neutrophil # 5.48 X10^3/uL (2.7-7.7); Neutrophil % 50.5 % (47-70); Platelet Count 222 K/mm3 (150-450); RBC Distribution Width CV 12.3 % (11.6-14.6); RBC Distribution Width SD 41.2 fl (35.1-43.9); Red Blood Count 2.82 M/mm3 (4.6-6.2); White Blood Count 10.8 K/mm3 (4.4-11.0)
[2022-03-17 07:15] LABS: Anion Gap 5 (5-15); BUN 36 mg/dL (7-18); BUN/Creat Ratio 35.3 RATIO (10-20); Calcium,Total 7.8 mg/dL (8.5-10.1); Chloride 114 mmol/L (98-107); Creatinine, Serum 1.02 mg/dL (0.70-1.30); EST Glomerular Filtration Rate 79 mL/min (>60); Est Glom Filt Rate - Afr Amer 96 mL/min (>60); Estimated Creatinine Clearance 80.51 ml/min; Glucose 105 mg/dL (74-106); Potassium 4.4 mmol/L (3.5-5.1); Sodium Level 143 mmol/L (136-145)
[2022-03-17 08:43] VITALS: BP 108/67; PULSE 61; RESP 18; TEMP 36.9; O2SAT 98
[2022-03-17] MEDS: Ascorbic Acid 500 MG Tablet PO (09:37)
[2022-03-17 10:01] VITALS: BP 103/59; BP 117/72; BP 124/73; PULSE 74; PULSE 82; PULSE 86
--- NOTE | 2022-03-17 10:56 | PCM.PN.SRG ---
Subjective Subjective Patient reports that his bowel movements have become mothers helper Objective Data Objective Data Vital Signs: Vital Signs Temp Pulse Resp BP Pulse Ox O2 Del Method O2 Flow Rate 98.4 F 74 18 103/59 L 98 Room Air 2 03/17/22 08:43 03/17/22 10:01 03/17/22 08:43 03/17/22 10:01 03/17/22 08:43 03/17/22 09:39 03/16/22 19:55 Oxygen Flow Rate (L/min) 2 Oxygen Delivery Method Room Air Weight: 228 lb Body Mass Index (BMI) 32.7 Intake & Output: Intake and Output for Last 24 Hours 03/15/22 03/16/22 03/17/22 23:59 23:59 23:59 Intake Total 1547.5 / 1547.5 1979 Balance 1547.5 / 1547.5 1979 Lab / Micro Data Result Diagrams: 03/17/22 06:16 03/17/22 06:16 Labs: Laboratory Results - last 24 hr 03/16/22 14:00: WBC 14.4 H, RBC 3.65 L, Hgb 10.7 L, Hct 32.2 L, MCV 88.2, MCH 29.3, MCHC 33.2, RDW Std Deviation 39.2, RDW Coeff of Kandis 12.1, Plt Count 270, MPV 9.4, Immature Gran % (Auto) 0.600, Neut % (Auto) 74.5 H, Lymph % (Auto) 17.8 L, [place] % (Auto) 6.6, Eos % (Auto) 0.2, Baso % (Auto) 0.3, Absolute Neuts (auto) 10.7 H, Absolute Lymphs (auto) 2.56, Nucleated RBC % 0 03/16/22 14:00: Sodium 141, Potassium 4.9, Chloride 110 H, Carbon Dioxide 23.0, Anion Gap 8, BUN 72 H, Creatinine 0.98, Estim Creat Clear Calc 83.80, Est GFR (MDRD) Af Amer 100, Est GFR (MDRD) Non-Af 83, BUN/Creatinine Ratio 73.2 H, Glucose 114 H, Calcium 8.9, Total Bilirubin 0.20, AST 15, ALT 25, Alkaline Phosphatase 62, Troponin I High Sens 51, Total Protein 6.3 L, Albumin 3.3, Globulin 3.0, Albumin/Globulin Ratio 1.1, Lipase 117 03/16/22 14:10: D-Dimer Quant (PE/DVT) < 0.27 L 03/16/22 21:31: WBC 13.0 H, RBC 3.14 L, Hgb 9.4 L, Hct 28.3 L, MCV 90.1, MCH 29.9, MCHC 33.2, RDW Std Deviation 39.9, RDW Coeff of Kandis 12.4, Plt Count 230, MPV 9.4, Immature Gran % (Auto) 0.300, Neut % (Auto) 51.1, Lymph % (Auto) 41.4 H, [place] % (Auto) 5.8, Eos % (Auto) 1.0, Baso % (Auto) 0.4, Absolute Neuts (auto) 6.6, Absolute Lymphs (auto) 5.38 H, Nucleated RBC % 0, Differential Comment SEE COMMENT, Platelet Estimate ADEQUATE, RBC Morphology N CHROM, Anisocytosis RARE, Macrocytosis RARE 03/17/22 06:16: WBC 10.8, RBC 2.82 L, Hgb 8.2 L, Hct 25.8 L, MCV 91.5, MCH 29.1, MCHC 31.8 L, RDW Std Deviation 41.2, RDW Coeff of Kandis 12.3, Plt Count 222, MPV 9.9, Immature Gran % (Auto) 0.600, Neut % (Auto) 50.5, Lymph % (Auto) 39.2, [place] % (Auto) 8.2, Eos % (Auto) 1.1, Baso % (Auto) 0.4, Absolute Neuts (auto) 5.5, Absolute Lymphs (auto) 4.25, Nucleated RBC % 0 03/17/22 06:16: Sodium 143, Potassium 4.4, Chloride 114 H, Carbon Dioxide 24.0, Anion Gap 5, BUN 36 H, Creatinine 1.02, Estim Creat Clear Calc 80.51, Est GFR (MDRD) Af Amer 96, Est GFR (MDRD) Non-Af 79, BUN/Creatinine Ratio 35.3 H, Glucose 105, Calcium 7.8 L Micro: Microbiology 03/16/22 15:17 Stool Stool Occult Blood (BASIM) - Final Occult Blood Positive Radiography Diagnostic Testing: Radiology Impression Chest X-Ray 03/16/22 15:15 IMPRESSION: No radiographic evidence of acute cardiopulmonary disease. Electronically Signed: Dagoberto Keys MD at 15:48 EST , Physical Exam Const oriented x3 Resp normal respiratory effort GI soft to palpation and non-tender Assessment & Plan Assessment/Plan (1) GI bleed: PLAN: Patient had an irritated area of the GE junction. This was biopsied. If the patient's hemoglobin is stable he may be discharged home on PPI and Carafate and follow-up with me in 1 week for pathology results. Paco Arciniega MD Pager: [facility] [address] [place] [address], [address] [place] [address] Office:
--- NOTE | 2022-03-17 12:13 | PCM.DC.SUM ---
Providers Date of Admission: 03/16/22 Date of Discharge: 03/17/22 Primary Care Physician: Dr. Malvin Nagel MD Consultations 03/16/22 17:21 Consult: General Surgery Routine Consulting Provider: Paco Arciniega Reason for Consult: GI bleed EMERGENT Consult: No MD Notified: Yes Date Notified: 03/16/22 Time Notified: 16:04 Method of Notification: ED Physician Initiated Reason For Visit: GI BLEED Diagnosis Discharge Diagnosis (1) GI bleed: Status: Acute Code(s): K92.2 - Gastrointestinal hemorrhage, unspecified Medications at Discharge Home Medications ascorbic acid (vitamin C) 250 mg tablet (Vitamin C) 500 mg PO DAILY vitamin 04/13/21 cholecalciferol (vitamin D3) 50 mcg (2,000 unit) capsule (Vitamin D3) 125 mcg PO DAILY vitamin 04/13/21 multivitamin 1 tab PO DAILY vitamin 04/13/21 melatonin 10 mg tablet 15 mg PO QHS sleep 03/16/22 pantoprazole 40 mg tablet,delayed release (Protonix) 40 mg PO BID #60 tabs 03/17/22 sucralfate 1 gram tablet 1 g PO 1HR_ACHS #120 tabs 03/17/22 Hospital Course Procedures EGD Summary of Care Provided Minutes Spent on Discharge: 38 Hospital Course: Mr. Quach is a 57-year-old white male who presents emergency department on 03/16/2022 with shortness of breath and weakness. Patient reported that the symptoms began on the day of presentation. He indicated he was feeling well yesterday but did have some abdominal discomfort. He reported that he had dark tarry stools on the morning of admission but denied any abdominal pain. Upon presentation his hemoglobin was found to be 10.7 and 1 previously checked on 12/21/2021 is 14 at that time. During his hospitalization his hemoglobin did drop into the eights but stabilized and was 8.2 on the a.m. of 03/17/2021 3 with a repeat 6 hours later at 8.0. He was not having any further dark stools. On the day of admission he was taken for an EGD. EGD demonstrated esophagitis with bleeding at the GE junction which was biopsied, erythematous mucosa in the prepyloric region of the stomach which was biopsied but otherwise a normal exam to the duodenum. He was started on Protonix 40 mg p.o. twice daily as well as Carafate and his diet was advanced. Orthostatic vitals were reassessed and were normalized. Patient indicated his stools had normalized on the day of discharge and he was feeling much better. Given his the fact that his hemoglobin stabilized and his orthostatics were negative I discussed the case with general surgery (Dr. Arciniega) and he felt the patient could be discharged home with follow-up to see him in 1 week. I have asked the patient to call his office tomorrow to establish an appointment to be seen within the next 7 days. I have also recommended he follow-up with his primary care physician within the next 1 to 2 weeks. I also recommend that he get a follow-up CBC done on 03/20/2022 to reassess his hemoglobin to assure that this is remained stabilized. He is to report back to the emergency department if he has any recurrent melena, chest pain, lightheadedness or dizziness. Patient voiced understanding. Prescriptions for the Protonix and Carafate were sent to his local pharmacy in 1 month refill was given on both these medications. We recommended that he discontinue his meloxicam and aspirin at this time until cleared for reinitiation by general surgery. I also instructed him to avoid NSAID's in general. I did not place the patient on iron at the time of discharge as not to confuse his previous melena but he may require iron supplementation if his hemoglobin does not improve with diet alone. Pathology results were pending upon discharge and general surgery plans to review these at his follow-up appointment. Patient was discharged home in stable condition on 03/17/2022. Discharge diagnoses: Upper GI bleed secondary to severe esophagitis at the GE junction Gastritis Acute blood loss anemia Shortness of breath-resolved Weakness-improved Alcohol use GERD Family history of peptic ulcer disease Arthritis Physical Exam Const alert, oriented x3, no apparent distress, healthy appearing and well nourished Constitutional Narrative: Obese, upper middle-aged white male, sitting up in bed, watching television, appears comfortable nontoxic, nursing at bedside General Appearance: cooperative, comfortable, well kempt and well developed HEENT normocephalic, head/scalp atraumatic, hearing grossly normal bilaterally and moist oral mucous membranes HEENT Narrative: Mallampati 3, no thrush Eyes PERRL and EOMs intact bilaterally; Negative for conjunctivae normal Eyes Narrative: Mild pale conjunctiva bilaterally, no scleral icterus Neck no lymphadenopathy, supple and no JVD Neck Narrative: Trachea midline, no thyroid enlargement Resp normal respiratory effort, no retractions, no use of accessory muscles and clear to auscultation bilaterally Auscultation: Negative for crackles, rhonchi or wheezes Cardio regular rate, regular rhythm, S1 normal heart sound, S2 normal heart sound, no murmurs, no rub, no gallops and no clicks GI normal to inspection, nondistended, normoactive bowel sounds, soft to palpation and non-tender Extremity no clubbing, cyanosis or edema Extremity Narrative: 2+ pedal pulses Skin no rashes or lesions noted, no wounds, skin turgor normal and no jaundice Neuro oriented x3, moves all extremities, no focal motor deficits and no sensory deficits noted Neuro Narrative: Ambulating around the room independently Speech: speech normal Motor Exam: strength 5/5 throughout Psych affect normal Psych Narrative: Very pleasant, appropriately interactive Weight / BMI Weight Weight: 103.419 kg Body Mass Index (BMI) 32.7 ABG / Lab / Microbiology Data Result Diagrams: 03/17/22 11:48 03/17/22 06:16 Laboratory: Laboratory Results - last 24 hr 03/16/22 14:00: WBC 14.4 H, RBC 3.65 L, Hgb 10.7 L, Hct 32.2 L, MCV 88.2, MCH 29.3, MCHC 33.2, RDW Std Deviation 39.2, RDW Coeff of Kandis 12.1, Plt Count 270, MPV 9.4, Immature Gran % (Auto) 0.600, Neut % (Auto) 74.5 H, Lymph % (Auto) 17.8 L, Hamblen % (Auto) 6.6, Eos % (Auto) 0.2, Baso % (Auto) 0.3, Absolute Neuts (auto) 10.7 H, Absolute Lymphs (auto) 2.56, Nucleated RBC % 0 03/16/22 14:00: Sodium 141, Potassium 4.9, Chloride 110 H, Carbon Dioxide 23.0, Anion Gap 8, BUN 72 H, Creatinine 0.98, Estim Creat Clear Calc 83.80, Est GFR (MDRD) Af Amer 100, Est GFR (MDRD) Non-Af 83, BUN/Creatinine Ratio 73.2 H, Glucose 114 H, Calcium 8.9, Total Bilirubin 0.20, AST 15, ALT 25, Alkaline Phosphatase 62, Troponin I High Sens 51, Total Protein 6.3 L, Albumin 3.3, Globulin 3.0, Albumin/Globulin Ratio 1.1, Lipase 117 03/16/22 14:10: D-Dimer Quant (PE/DVT) < 0.27 L 03/16/22 21:31: WBC 13.0 H, RBC 3.14 L, Hgb 9.4 L, Hct 28.3 L, MCV 90.1, MCH 29.9, MCHC 33.2, RDW Std Deviation 39.9, RDW Coeff of Kandis 12.4, Plt Count 230, MPV 9.4, Immature Gran % (Auto) 0.300, Neut % (Auto) 51.1, Lymph % (Auto) 41.4 H, Hamblen % (Auto) 5.8, Eos % (Auto) 1.0, Baso % (Auto) 0.4, Absolute Neuts (auto) 6.6, Absolute Lymphs (auto) 5.38 H, Nucleated RBC % 0, Differential Comment SEE COMMENT, Platelet Estimate ADEQUATE, RBC Morphology N CHROM, Anisocytosis RARE, Macrocytosis RARE 03/17/22 06:16: WBC 10.8, RBC 2.82 L, Hgb 8.2 L, Hct 25.8 L, MCV 91.5, MCH 29.1, MCHC 31.8 L, RDW Std Deviation 41.2, RDW Coeff of Kandis 12.3, Plt Count 222, MPV 9.9, Immature Gran % (Auto) 0.600, Neut % (Auto) 50.5, Lymph % (Auto) 39.2, Hamblen % (Auto) 8.2, Eos % (Auto) 1.1, Baso % (Auto) 0.4, Absolute Neuts (auto) 5.5, Absolute Lymphs (auto) 4.25, Nucleated RBC % 0 03/17/22 06:16: Sodium 143, Potassium 4.4, Chloride 114 H, Carbon Dioxide 24.0, Anion Gap 5, BUN 36 H, Creatinine 1.02, Estim Creat Clear Calc 80.51, Est GFR (MDRD) Af Amer 96, Est GFR (MDRD) Non-Af 79, BUN/Creatinine Ratio 35.3 H, Glucose 105, Calcium 7.8 L 03/17/22 11:48: Hgb 8.0 L Microbiology: Microbiology 03/16/22 15:17 Stool Stool Occult Blood (BASIM) - Final Occult Blood Positive Radiography Diagnostic Testing: Radiology Impression Chest X-Ray 03/16/22 15:15 IMPRESSION: No radiographic evidence of acute cardiopulmonary disease. Electronically Signed: Dagoberto Keys MD at 15:48 EST Reading Location ID and State: [facility] [place] , Service support , D/C Instructions Discharge Diet: Light diet - advance as tolerated Discharge Activity: Return to Normal Activity Return to work on: 03/19/22 Call your doctor if you observe: Inability to have a bowel movement, Shortness of breath, Dizziness, Chest pain and - (Dark or bloody stools that are recurrent) Meaningful Use Info Meaningful Use Diagnoses (Choose all that apply): None applicable Discharge Plan Admission Admit Date/Time: 03/16/22 16:01 Primary Reason for Your Visit: SOB/Weakness Attending Provider: Chacha Obrien Primary Care Provider: Malvin Nagel Consulting Providers: Paco Arciniega ; Abdoul Bah Instructions Additional Instructions / Restrictions: 1. Please take below new medications as ordered 2. Avoid aspirin, NSAIDs including meloxicam, naproxen, ibuprofen until after you follow-up with Dr. Arciniega and he clears you for reinitiating these medications 3. Call Dr. Arciniega's office as directed below for follow-up appointment within the next week--> recommend calling tomorrow morning to 07/30/2022 4. Please call either your primary care physician's office or Dr. Arciniega's office to obtain a CBC to be done on 03/20/2022 to follow-up your hemoglobin (blood counts) 5. Avoid alcohol intake Discharge Orders/Prescriptions Prescriptions: New sucralfate 1 gram Tablet 1 g PO 1HR_ACHS Qty: 120 1RF pantoprazole [Protonix] 40 mg tablet,delayed release (DR/EC) 40 mg PO BID Qty: 60 1RF Continued multivitamin Tablet 1 tab PO DAILY ascorbic acid (vitamin C) [Vitamin C] 250 mg Tablet 500 mg PO DAILY cholecalciferol (vitamin D3) [Vitamin D3] 50 mcg (2,000 unit) Capsule 125 mcg PO DAILY melatonin 10 mg Tablet 15 mg PO QHS Discontinued meloxicam 15 mg tablet 15 mg PO DAILY Label Comments: TAKE 1 TABLET BY MOUTH EVERY DAY aspirin [Baby Aspirin] 81 mg Tablet,Chewable 81 mg PO DAILY Referrals / Follow Up: Paco Arciniega MD [Med Staff - Active Staff] - In 1 Week (call tomorrow to establish appt) Malvin Nagel MD [Primary Care Provider] - Within 1 Week Disposition Disposition (needs filled in before D/C Order can be placed): Home, Self Care Charges/Coding Visit Charges Inpatient E&M: 13219 Disch Hosp
[2022-03-17 13:38] VITALS: BP 107/63; PULSE 68; RESP 18; TEMP 36.8; O2SAT 98
== END 2022-03-17 14:00 | disposition home or self-care (01) | DRG 368 ==
LOC: ED 15:50 → MS3 18:43
PROVIDERS: Surgery; Emergency Provider Emergency Medicine; PCP Family Medicine; Visit Provider Internal Medicine
PROC: 0DJ08ZZ Inspection of Upper Intestinal Tract, Via Natural or Artificial Opening Endoscopic (ICD-10-PCS; CPT 43235; principal; 2022-03-16 19:15)
DX: K21.01 Gastro-esophageal reflux disease with esophagitis, with bleeding (principal); K29.71 Gastritis, unspecified, with bleeding; D62 Acute posthemorrhagic anemia; M19.90 Unspecified osteoarthritis, unspecified site; Z79.02 Long term (current) use of antithrombotics/antiplatelets; Z79.82 Long term (current) use of aspirin; Z79.1 Long term (current) use of non-steroidal anti-inflammatories (NSAID); Z83.79 Family history of other diseases of the digestive system; F17.220 Nicotine dependence, chewing tobacco, uncomplicated; R06.02 Shortness of breath
CPT/HCPCS: 43239; 36415; 71045; 80048; 80053; 82274; 83690; 84484; 85018; 85025; 85379; 88305; 88342; 93005; 96361; 96365; 96366; 99221; 99285; J7030; A4216; G0378; J2405

== ENCOUNTER → 2022-03-21 | Outpatient (CLI) | payer BC, SELFPAY ==
[2022-03-21 08:04] LABS: Absolute Lymphocyte Count 3.43 X10^3/uL (0.83-4.51); Absolute Neutrophil Count 5.9 X10^3/uL (2.0-7.7); Basophil# 0.04 X10^3/uL; Basophil% 0.4 % (0-1); Eosinophils% 1.9 % (0-5); Hematocrit 27.3 % (40-54); Hemoglobin 8.6 g/dL (13.0-16.5); Lymphocyte # 3.43 X10^3/ul (0.83-4.51); Lymphocyte % 32.3 % (19-41); Mean Corp Hgb Conc 31.5 g/dL (32-36); Mean Corpuscular Hgb 29.2 pg (27.0-32.0); Mean Corpuscular Volume 92.5 fL (80-94); Mean Platelet Vol. 9.1 fl (6.2-12.0); Monocyte# 0.88 X10^3/uL; Monocyte% 8.3 % (0-10); NRBC Flagged by Analyzer 0 % (0-5); Neutrophil # 5.94 X10^3/uL (2.7-7.7); Neutrophil % 55.9 % (47-70); Platelet Count 292 K/mm3 (150-450); RBC Distribution Width CV 13.1 % (11.6-14.6); RBC Distribution Width SD 41.9 fl (35.1-43.9); Red Blood Count 2.95 M/mm3 (4.6-6.2); White Blood Count 10.6 K/mm3 (4.4-11.0)
== END | disposition home or self-care (01) ==
LOC: PAVLAB 07:45
PROVIDERS: PCP Family Medicine; Referring Provider Surgery; Visit Provider Surgery
DX: K92.2 Gastrointestinal hemorrhage, unspecified (principal); D62 Acute posthemorrhagic anemia
CPT/HCPCS: 36415; 85025

== ENCOUNTER 2022-06-04 07:29 | Day surgery (SDC) | payer BC, SELFPAY ==
[2022-06-04 07:55] VITALS: BP 114/69; PULSE 51; RESP 16; TEMP 36.6; O2SAT 93; BMI 32.3
[2022-06-04] MEDS: Lactated Ringers 1,000 ML 15 ML IV (07:57)
--- NOTE | 2022-06-04 08:13 | PCM.HP.STD ---
HPI - General HPI Narrative CELIA DURHAM, is a 57 M who presents for follow-up. Patient had EGD for food impaction a few months ago and was started on a PPI. I am repeating an EGD for biopsies and inspection without food in the way. FOR[facility]LY [facility] Medical History Alcohol use Arthritis Chewing tobacco nicotine dependence GERD (gastroesophageal reflux disease) GI bleed Heartburn Non-smoker Rheumatoid arthritis Wears contact lenses Home Medications ascorbic acid (vitamin C) 250 mg tablet (Vitamin C) 500 mg PO DAILY vitamin 04/13/21 [History Last Taken Unknown] cholecalciferol (vitamin D3) 50 mcg (2,000 unit) capsule (Vitamin D3) 125 mcg PO DAILY vitamin 04/13/21 [History Last Taken 03/16/22 07:30] multivitamin 1 tab PO DAILY vitamin 04/13/21 [History Last Taken 03/16/22 07:30] melatonin 10 mg tablet 15 mg PO QHS sleep 03/16/22 [History Last Taken 03/15/22 22:25] pantoprazole 40 mg tablet,delayed release (Protonix) 40 mg PO BID #60 tabs 03/17/22 [Rx Last Taken Unknown] sucralfate 1 gram tablet 1 g PO 1HR_ACHS #120 tabs 03/17/22 [Rx Last Taken Unknown] Allergy/AdvReac Type Severity Reaction Status Date / Time No Known Allergies Allergy Verified 06/04/22 07:54 Family History Father Peptic ulcer disease Surgical History History of arthroplasty of both wrists History of colonoscopy History of endoscopy History of nasal surgery Social History Smoking Status: Never smoker Smokeless tobacco user: chewing tobacco alcohol intake: current alcohol intake frequency: 0-2 drinks per day ROS Constitutional Constitutional: Denies anorexia, chills or fatigue Eyes Eyes: Denies blurry vision ENT HEENT: Denies abnormal hearing Cardiovascular Cardiovascular: Denies chest pain Respiratory/Chest Respiratory/Chest: Denies cough or dyspnea Gastrointestinal Gastrointestinal: Denies abdominal pain Genitourinary Genitourinary: Denies change in urinary stream Vital Signs Vital Signs Vital Signs: 06/04/22 07:55 06/04/22 07:55 Temperature 98 F Temperature Source Temporal Pulse Rate 51 L Respiratory Rate 16 Respiratory Pattern Normal Blood Pressure 114/69 Blood Pressure Mean 84 Blood Pressure Source Monitor Blood Pressure Position Semi-Fowlers Blood Pressure Location Left Arm Pulse Ox 93 Oxygen Delivery Method Room Air Weight Weight: 231 lb 7.766 oz Body Mass Index (BMI) 32.3 Physical Exam Const oriented x3 Resp normal respiratory effort Cardio regular rate and regular rhythm GI normal to inspection, nondistended, normoactive bowel sounds Assessment & Plan Assessment/Plan (1) Esophagitis: PLAN: Patient was in the hospital recently for acute blood loss anemia and had EGD and it showed esophagitis.? Biopsies were negative for malignancy.? He was started on a PPI and feels much better.? I would like to repeat EGD in a month or 2 to ensure there is adequate healing and obtain further biopsies now that the distal esophagus is less inflamed to rule out malignancy. I explained endoscopy in detail to the patient.? I explained the risks including but not limited to stroke or heart attack with anesthesia, perforation of the GI tract, bleeding, infection.? I explained that any of these could necessitate further emergency surgery.? The patient understands and all questions were answered sufficiently.? The patient wishes to proceed with procedure. Paco Arciniega MD Pager: [facility] [address] [place] [address] [address] [place] [phone] Office:
--- NOTE | 2022-06-04 08:30 | EGD_PTH ---
PATIENT: CELIA DURHAM LOC: EN U#:[id number] AGE/SX: 57/M ROOM: RE06/04/[address]: Dr. Paco Arciniega MD : 1965 BED: DIS: 06/04/2022 SPEC #: [id number] RECD: 06/04/22 11:40 STATUS: ANIL TOMAS #: [id number] ROSA ISELA: 06/04/22 08:[address]: Paco Aricniega DEPT: SURGICAL PATHOLOGY RECD BY: Tomeka Cardona ENTERED: 06/04/22 12:11 SP TYPE: EGD BIOPSY JONELLE DR: Dr. Fer Nagel MD Tissues: Esophagus, NOS Procedures: Special Stain Group II Surgery Specimen Level IV Alcian Blue/PAS (control) HEADER OPERATION: EGD with biopsies ([facility] [place] PRE-OP DIAGNOSIS: Esophagitis TISSUE SUBMITTED: Distal esophagus biopsy MICROSCOPIC DIAGNOSIS Distal esophagus, biopsy: Gastroesophageal junctional mucosa with mild chronic inflammation. Focal changes of reflux. No evidence of goblet cell metaplasia. See comment. AM:charlette 06/05/2022 COMMENT Alcian blue/PAS stain with matched control supports the above diagnosis. MICROSCOPIC DESCRIPTION Slides are reviewed. GROSS DESCRIPTION Received in fixative is one container labeled with the patient's name and designated distal esophagus. The specimen consists of multiple irregular fragments of light greene soft tissue that in aggregate measure 1.0 x 0.2 x 0.1 cm. The specimen is totally submitted in one cassette. / AM:charlette 06/04/2022 TC:3 CPT: 64554, 03780
[2022-06-04 08:31] VITALS: BP 106/71; BP 114/69; PULSE 57; RESP 14; TEMP 36.9; O2SAT 92
--- NOTE | 2022-06-04 08:33 | OP.EGD_ITS ---
Patient Name: True Quach Procedure Date: 06/04/2022 8:12 AM Date of : 1965 Age: 57 Procedure: Upper GI endoscopy Indications: Iron deficiency anemia Providers: Paco Arciniega MD Referring MD: Paco Arciniega MD Medicines: Monitored Anesthesia Care Patient Profile: This is a 57 year old male. Refer to note in patient chart for documentation of history and physical. Complications: No immediate complications. Estimated blood loss: Minimal. Procedure: Pre-Anesthesia Assessment: - Prior to the procedure, a History and Physical was performed, and patient medications and allergies were reviewed. The patient's tolerance of previous anesthesia was also reviewed. The risks and benefits of the procedure and the sedation options and risks were discussed with the patient. All questions were answered, and informed consent was obtained. Prior Anticoagulants: The patient has taken no previous anticoagulant or antiplatelet agents. After reviewing the risks and benefits, the patient was deemed in satisfactory condition to undergo the procedure. After obtaining informed consent, the endoscope was passed under direct vision. Throughout the procedure, the patient's blood pressure, pulse, and oxygen saturations were monitored continuously. The Endoscope was introduced through the mouth, and advanced to the fourth part of duodenum. The upper GI endoscopy was accomplished without difficulty. The patient tolerated the procedure well. Scope In: 8:23:57 AM Scope Out: 8:26:09 AM Total Procedure Duration Time 0 hours 2 minutes 12 seconds Findings: Esophagitis with no bleeding was found at the gastroesophageal junction. Biopsies were taken with a cold forceps for histology. Impression: - Reflux esophagitis. Biopsied. Recommendation: - Discharge patient to home. - Resume previous diet. - Continue present medications. - Use Protonix (pantoprazole) 40 mg PO daily for 6 weeks. Procedure Code(s): --- Professional --- 80184, Esophagogastroduodenoscopy, flexible, transoral; with biopsy, single or multiple Diagnosis Code(s): --- Professional --- K21.0, Gastro-esophageal reflux disease with esophagitis D50.9, Iron deficiency anemia, unspecified CPT copyright 2017 [employer]. All rights reserved. The codes documented in this report are preliminary and upon nurse emergency room review may be revised to meet current compliance requirements. Paco Arciniega MD 06/04/2022 8:33:13 AM This report has been signed electronically. Number of Addenda: 0 Note Initiated On: 06/04/2022 8:12 AM
--- NOTE | 2022-06-04 08:34 | OP.CCLET_ITS ---
06/04/2022 Malvin Nagel [address] [place] [address] Re : Upper GI endoscopy procedure for True Quach Dear Dr. Nagel This procedure was performed on Saturday, June 04, 2022. My impressions and recommendations are as follows: Impressions : - Reflux esophagitis. Biopsied. Recommendations : - Discharge patient to home. - Resume previous diet. - Continue present medications. - Use Protonix (pantoprazole) 40 mg PO daily for 6 weeks. My findings are described in the full procedure note, which is enclosed. If I can be of further assistance, please feel free to contact me at Doctor phone number(s): , Work: . Sincerely, Paco Arciniega MD 06/04/2022 8:33:13 AM This report has been signed electronically.
[2022-06-04 08:35] VITALS: BP 114/69; BP 91/57; BP 99/66; PULSE 52; PULSE 54; RESP 16; RESP 18; O2SAT 93
[2022-06-04 08:45] VITALS: BP 100/67; BP 114/69; PULSE 47; RESP 18; TEMP 36.7; O2SAT 93
[2022-06-04 09:06] VITALS: BP 114/69
== END 2022-06-04 09:33 | disposition home or self-care (01) ==
LOC: EN 07:29 → AC 07:30
PROVIDERS: PCP Family Medicine; Referring Provider Family Medicine; Visit Provider Surgery
PROC: 0DJ08ZZ Inspection of Upper Intestinal Tract, Via Natural or Artificial Opening Endoscopic (ICD-10-PCS; CPT 43235; principal; 2022-06-04 08:25)
DX: K21.00 Gastro-esophageal reflux disease with esophagitis, without bleeding (principal); D50.9 Iron deficiency anemia, unspecified
CPT/HCPCS: 43239; 88305; 88313; J7120; J2405

== ENCOUNTER → 2023-01-08 | Outpatient (CLI) | payer BC, SELFPAY ==
[2023-01-08 11:02] LABS: Cholesterol 189 mg/dL (200); High Density Lipoprotein 66 mg/dL; PSA,Total - Annual Screen 0.89 ng/mL (0.00-4.00); Triglycerides 60 mg/dL; Very Low Density Lipoprotein 12 mg/dL (5-40)
[2023-01-08 12:25] LABS: Ferritin 64 ng/mL (26-388); Iron 98 ug/dL (65-175)
== END | disposition home or self-care (01) ==
LOC: MFPLAB 09:21
PROVIDERS: PCP Family Medicine; Visit Provider Family Medicine
DX: Z12.5 Encounter for screening for malignant neoplasm of prostate (principal); Z13.220 Encounter for screening for lipoid disorders; K92.2 Gastrointestinal hemorrhage, unspecified; D64.9 Anemia, unspecified
CPT/HCPCS: 36415; 80061; 82728; 83540; 84153; G0103

== ENCOUNTER 2023-07-14 08:45 | Emergency (ER) | payer BC, SELFPAY ==
[2023-07-14 08:45] VITALS: BP 158/95; PULSE 88; RESP 18; TEMP 35.6; O2SAT 97; BMI 31.4
--- NOTE | 2023-07-14 09:05 | EX.ED.GENINJ ---
HPI History of Present Illness Chief Complaint: Laceration PFSH PFSH Medical History Rheumatoid arthritis GERD (gastroesophageal reflux disease) Non-smoker GI bleed Wears contact lenses Alcohol use Arthritis Heartburn Chewing tobacco nicotine dependence Home Medications ?Medication ?Instructions ?Recorded ?Last Taken ?Type ascorbic acid (vitamin C) 250 mg 500 mg PO DAILY vitamin 04/13/21 Unknown History tablet (Vitamin C) cholecalciferol (vitamin D3) 50 125 mcg PO DAILY vitamin 04/13/21 03/16/22 07:30 History mcg (2,000 unit) capsule (Vitamin D3) multivitamin 1 tab PO DAILY vitamin 04/13/21 03/16/22 07:30 History melatonin 10 mg tablet 15 mg PO QHS sleep 03/16/22 03/15/22 22:25 History sucralfate 1 gram tablet 1 g PO 1HR_ACHS #120 tabs 03/17/22 Unknown Rx pantoprazole 40 mg tablet,delayed 40 mg PO DAILY #90 TABLETS 06/09/23 Unknown Rx release cephalexin 500 mg capsule 500 mg PO Q8H #15 caps 07/14/23 Unknown Rx cephalexin 500 mg capsule 500 mg PO TID 5 days #15 caps 07/14/23 Unknown Rx Allergy/AdvReac Type Severity Reaction Status Date / Time No Known Allergies Allergy Verified 07/14/23 08:45 Family History Father Peptic ulcer disease Surgical History History of endoscopy History of colonoscopy History of nasal surgery History of arthroplasty of both wrists Social History Smoking Status: Never smoker Smokeless tobacco user: chewing tobacco alcohol intake: current alcohol intake frequency: 0-2 drinks per day EXAM Physical Exam Const Vital Signs: 07/14/23 08:45 Temperature 96.0 F L Temperature Source Temporal Pulse Rate 88 Respiratory Rate 18 Blood Pressure 158/95 H Blood Pressure Mean 116 Pulse Ox 97 Oxygen Delivery Method Room Air MDM MDM MDM Narrative Medical decision making narrative: HISTORY OF PRESENT ILLNESS: 58-year-old male presents with left finger injury. Notes he was at work and had a hammer impact his left fourth digit. This caused a laceration and crush injury. REVIEW OF SYSTEMS: Pertinent positives: Finger injury, finger pain Pertinent negatives: Numbness, tingling, loss sensation PHYSICAL EXAM: Nursing triage notes reviewed, Vital signs reviewed Constitutional: please see mdm Extremities: No edema Neuro: Intact 5/5 strength with ok sign (median), intact finger abduction (ulnar) intact wrist extension (radial n). Intact sensation in the radial, ulnar, and median nerve distributions. Skin linear laceration noted to the lateral surface of the fourth digit proximately 4 cm in length and 2 mm in depth MEDICAL DECISION MAKING: Chief Complaint: Finger injury External records reviewed: No documented tetanus immunization noted in the chart Factors affecting care: GERD [facility] Narrative: Patient was hemodynamically stable, afebrile and nontoxic-appearing. Intact digit range of motion flexion extension abduction and adduction. Exam without tenderness involvement, no foreign bodies, The patient suffered lacerations to the left fourth digit. On exam there was no evidence of foreign bodies. . There was no evidence of neurovascular injury. Patient had a normal distal vascular exam, and had intact ROM and sensation. There was also no evidence of tendon injury, with normal distal full range of motion, flexion, extension, abduction, abduction. There is no evidence of local joint space involvement at this time. Wound care applied (irrigation and/or local cleansing solution). Laceration repair was then performed please see procedure note. Patient was given prophylactic antimicrobial therapy. The patient was given signs and symptoms warnings for infection, such as increasing pain, redness, swelling, associated heat, pus or fever. Wound care instructions were given. Patient was given instructions for timely follow-up. Patient agreed with the plan of care Indication: Wound repair Risks and benefits: risks, benefits and alternatives were discussed Consent: Consent was obtained. Wound Details: Left fourth digit, 4 cm in length, 2 mm in depth, no foreign bodies, no obvious tenderness involvement Anesthesia: 1% lidocaine Wound prep: Patient was prepped and draped in the usual sterile fashion. Tetanus: Up-to-date, no need for update today Irrigation Solution: Saline Wound Preparation: Soaked in Betadine and chlorhexidine for approximate 15 minutes The wound was explored to its base in a bloodless field. Procedure Description: applied ~Seven 5-0 Chromic Gut sutures approximately with close approximation Patient tolerated the procedure well with no immediate complications The patient and/or family, caregivers express understanding. The patient and/or family, caregivers agrees with the plan. Shared decision making: I will have a discussion with the patient and or visitors regarding risk/benefits of further testing or admission. They will be made aware of of the risk/benefits inherent in this decision they will be given the opportunity to voice understanding. Total critical care time today provided was at least 0 minutes. This excludes separately billable procedures. Critical care time (if documented) is secondary to the patient having high probability of clinically significant/life threatening deterioration in the patient's condition which required my urgent intervention. Impression: 1. Finger laceration 2. Finger pain Dispo: Discharge home This note was generated with [employer] dictation software. It may contain incorrect words, spelling, and punctuation that were not noted in review of the chart prior to signing. Discharge Plan Triage Chief Complaint: Laceration ED Provider: Cayden Beaulieu Dx/Rx/DC Orders Instructions: ED Laceration, All Closures Prescriptions: New cephalexin 500 mg capsule 500 mg PO TID 5 Days Qty: 15 0RF cephalexin 500 mg capsule 500 mg PO Q8H Qty: 15 0RF No Action multivitamin Tablet 1 tab PO DAILY ascorbic acid (vitamin C) [Vitamin C] 250 mg Tablet 500 mg PO DAILY cholecalciferol (vitamin D3) [Vitamin D3] 50 mcg (2,000 unit) Capsule 125 mcg PO DAILY melatonin 10 mg Tablet 15 mg PO QHS sucralfate 1 gram Tablet 1 g PO 1HR_ACHS Qty: 120 1RF Patient Comments: OUT OF MED pantoprazole 40 mg tablet,delayed release (DR/EC) 40 mg PO DAILY Qty: 90 3RF Primary Care Provider: Fer Nagel Referrals: Fer Nagel MD [Primary Care Provider] - Activity Restrictions/Additional Instructions: Thank you for trusting us with your care today! Please take Tylenol (2 pills, 650 mg), every 6 hours as needed for pain and fever control. Please take antibiotics as prescribed. Please return to the emergency department if your symptoms change or worsen. Specific if develop redness, white-yellow discharge, increasing pain disease or signs of infection. Please follow with your primary care physician for further outpatient evaluation and management. Print Language: Kiswahili Disposition Disposition: Home, Self Care Discharge Date/Time: 07/14/23 10:38
--- NOTE | 2023-07-14 10:36 | ED.RN ---
pt declined to fill out froi or file workmans comp
== END 2023-07-14 10:38 | disposition home or self-care (01) ==
LOC: ED 10:06
PROVIDERS: Emergency Provider Emergency Medicine; PCP Family Medicine; Visit Provider Emergency Medicine
DX: K21.9 Gastro-esophageal reflux disease without esophagitis (principal); Z79.899 Other long term (current) drug therapy; Z96.631 Presence of right artificial wrist joint; Z96.632 Presence of left artificial wrist joint; S61.215A Laceration without foreign body of left ring finger without damage to nail, initial encounter; W23.2XXA Caught, crushed, jammed or pinched between a moving and stationary object, initial encounter; Y93.89 Activity, other specified; Y92.89 Other specified places as the place of occurrence of the external cause
CPT/HCPCS: 12002; 99284

== ENCOUNTER 2023-07-14 17:55 | Emergency (ER) | payer BC, SELFPAY ==
[2023-07-14 17:55] VITALS: BP 158/96; PULSE 77; RESP 14; TEMP 36.6; O2SAT 95; BMI 32.1
--- NOTE | 2023-07-14 20:04 | EX.ED.GENINJ ---
HPI <MAURA Pacheco - Last Filed: 07/14/23 20:24> History of Present Illness Chief Complaint: Laceration Narrative Narrative: Patient presenting today due to bleeding from laceration to his left first finger. He reports that this morning he accidentally hit his finger with a hammer causing a crush injury and laceration. He was here earlier today and had sutures placed. However, there is an area that was not sutured that has had bleeding. PFSH <MAURA Pacheco - Last Filed: 07/14/23 20:24> PFSH Medical History Rheumatoid arthritis GERD (gastroesophageal reflux disease) Non-smoker GI bleed Wears contact lenses Alcohol use Arthritis Heartburn Chewing tobacco nicotine dependence Home Medications ?Medication ?Instructions ?Recorded ?Last Taken ?Type ascorbic acid (vitamin C) 250 mg 500 mg PO DAILY vitamin 04/13/21 Unknown History tablet (Vitamin C) cholecalciferol (vitamin D3) 50 125 mcg PO DAILY vitamin 04/13/21 03/16/22 07:30 History mcg (2,000 unit) capsule (Vitamin D3) multivitamin 1 tab PO DAILY vitamin 04/13/21 03/16/22 07:30 History melatonin 10 mg tablet 15 mg PO QHS sleep 03/16/22 03/15/22 22:25 History sucralfate 1 gram tablet 1 g PO 1HR_ACHS #120 tabs 03/17/22 Unknown Rx pantoprazole 40 mg tablet,delayed 40 mg PO DAILY #90 TABLETS 06/09/23 Unknown Rx release cephalexin 500 mg capsule 500 mg PO Q8H #15 caps 07/14/23 Unknown Rx cephalexin 500 mg capsule 500 mg PO TID 5 days #15 caps 07/14/23 Unknown Rx Allergy/AdvReac Type Severity Reaction Status Date / Time No Known Allergies Allergy Verified 07/14/23 17:59 Family History Father Peptic ulcer disease Surgical History History of endoscopy History of colonoscopy History of nasal surgery History of arthroplasty of both wrists Social History Smoking Status: Never smoker Smokeless tobacco user: chewing tobacco alcohol intake: current alcohol intake frequency: 0-2 drinks per day ROS <MAURA Pacheco - Last Filed: 07/14/23 20:24> ROS ED Constitutional Constitutional ED: Denies chills or fever(s) Musculoskeletal Musculoskeletal: Denies arthralgias Integumentary Reports laceration Neurologic Neurologic: Denies paresthesias EXAM <MAURA Pacheco - Last Filed: 07/14/23 20:24> Physical Exam Const Vital Signs: 07/14/23 17:55 Temperature 97.9 F Temperature Source Temporal Pulse Rate 77 Respiratory Rate 14 Blood Pressure 158/96 H Blood Pressure Mean 116 Pulse Ox 95 Oxygen Delivery Method Room Air Positive well nourished, well developed and no apparent distress General Appearance ED: well developed HEENT Reports normocephalic and head/scalp atraumatic Mouth ED: Yes moist mucous membranes normal Eyes PERRL and EOMs intact bilaterally Neck full ROM and supple Chest Wall inspection of chest normal Resp normal respiratory effort and clear to auscultation bilaterally Cardio regular rate and regular rhythm Back/Spine normal ROM Extremity normal to inspection and full ROM Extremity Narrative: Intact sutures to the lateral aspect of the left fourth digit. No dehiscence. Small 0.3 cm full-thickness laceration to the palmar aspect of the left fourth finger, no active bleeding. Full flexion/ extension to the finger, neurovascularly intact distally. Neuro oriented x3, CN's II-XII intact bilaterally, moves all extremities, no focal motor deficits and no sensory deficits noted Sensorium / Orientation: awake and alert Psych mental status grossly normal and thought process normal Skin Rashes: No rashes noted <Pierre Randhawa MD - Last Filed: 07/14/23 22:35> Physical Exam Const Vital Signs: 07/14/23 17:55 Temperature 97.9 F Temperature Source Temporal Pulse Rate 77 Respiratory Rate 14 Blood Pressure 158/96 H Blood Pressure Mean 116 Pulse Ox 95 Oxygen Delivery Method Room Air PROC <MAURA Pacheco - Last Filed: 07/14/23 20:24> Procedures Lacerations Laceration: Length: 0.12 in Depth: Sub Q Shape: Linear Prep: Chlorhexadine Laceration repair: Irrigated Suture Information: Ethilon, Simple and 5-0 MDM <MAURA Pacheco - Last Filed: 07/14/23 20:24> MDM MDM Narrative Medical decision making narrative: Patient presenting with laceration to his left fourth finger from a injury with a hammer that occurred this afternoon. He has a laceration to the lateral aspect of his finger that was repaired earlier today with sutures. The stitches are intact, there is no dehiscence or signs of infection. There is a small laceration to the palmar aspect of the finger that has been bleeding intermittently since he has been home. I did clean this with chlorhexidine and applied 1 stitch. I did offer to perform a digital block, he declined. Wound care instructions were discussed, encouraged that he have the suture removed in 5 to 7 days. Wound was bandaged with bacitracin ointment and he was given a an aluminum splint. He will be discharged home in stable condition. <Pierre Randhawa MD - Last Filed: 07/14/23 22:35> [facility] Narrative Medical decision making narrative: Patient presenting with laceration to his left fourth finger from a injury with a hammer that occurred this afternoon. He has a laceration to the lateral aspect of his finger that was repaired earlier today with sutures. The stitches are intact, there is no dehiscence or signs of infection. There is a small laceration to the palmar aspect of the finger that has been bleeding intermittently since he has been home. I did clean this with chlorhexidine and applied 1 stitch. I did offer to perform a digital block, he declined. Wound care instructions were discussed, encouraged that he have the suture removed in 5 to 7 days. Wound was bandaged with bacitracin ointment and he was given a an aluminum splint. He will be discharged home in stable condition. Dr. Randhawa: I have personally performed a face to face assessment of the patient and have reviewed the DAVID Note. I performed a substantive portion of the visit including all aspects of the following. My ellison findings include: History is patient seen in the emergency department after laceration sustained to his left fourth finger. Patient had Chromic Gut sutures placed by ED physician, there is an area that continues to bleed. Exam is afebrile. Vital signs noted. Sutured laceration fourth digit. Small area of open wound on the volar aspect. No pulsatile bleeding. Medical Decision Making: Patient's prior record was reviewed. As above, patient declined analgesia or local infiltration/digital block. 1 simple erupted suture was used to close the wound further. He is to have the suture removed in 5 to 7 days. Return with new or worsening symptoms. Disposition discharge. Other additions or changes: [None] Discharge Plan Triage Chief Complaint: Laceration ED Midlevel Provider: Lilia Shirley ED Provider: Pierre Randhawa Dx/Rx/DC Orders Clinical Impression: Finger laceration Instructions: ED Laceration Extremity Prescriptions: No Action multivitamin Tablet 1 tab PO DAILY ascorbic acid (vitamin C) [Vitamin C] 250 mg Tablet 500 mg PO DAILY cholecalciferol (vitamin D3) [Vitamin D3] 50 mcg (2,000 unit) Capsule 125 mcg PO DAILY melatonin 10 mg Tablet 15 mg PO QHS sucralfate 1 gram Tablet 1 g PO 1HR_ACHS Qty: 120 1RF Patient Comments: OUT OF MED cephalexin 500 mg capsule 500 mg PO TID 5 Days Qty: 15 0RF cephalexin 500 mg capsule 500 mg PO Q8H Qty: 15 0RF pantoprazole 40 mg tablet,delayed release (DR/EC) 40 mg PO DAILY Qty: 90 3RF Primary Care Provider: Fer Nagel Referrals: Fer Nagel MD [Primary Care Provider] - 5 Days for suture removal Activity Restrictions/Additional Instructions: Have sutures removed in 5 to 7 days. Return for any signs of infection. Print Language: Georgian Disposition Disposition: Home, Self Care Discharge Date/Time: 07/14/23 20:35
== END 2023-07-14 20:35 | disposition home or self-care (01) ==
LOC: ED 20:37
PROVIDERS: Emergency Provider Emergency Medicine; PCP Family Medicine; Visit Provider Emergency Medicine
DX: S61.215A Laceration without foreign body of left ring finger without damage to nail, initial encounter (principal); W23.2XXA Caught, crushed, jammed or pinched between a moving and stationary object, initial encounter; Y93.89 Activity, other specified; Y92.89 Other specified places as the place of occurrence of the external cause; K21.9 Gastro-esophageal reflux disease without esophagitis; Z79.899 Other long term (current) drug therapy; Z96.631 Presence of right artificial wrist joint; Z96.632 Presence of left artificial wrist joint; F17.220 Nicotine dependence, chewing tobacco, uncomplicated
CPT/HCPCS: 12001; 99283

== ENCOUNTER → 2023-12-16 | Outpatient (CLI) | payer BC, SELFPAY ==
[2023-12-16 17:47] LABS: PSA,Total - Annual Screen 0.86 ng/mL (0.00-4.00)
== END | disposition home or self-care (01) ==
LOC: MFPLAB 15:35
PROVIDERS: PCP Family Medicine; Visit Provider Nurse Practitioner Family
DX: Z12.5 Encounter for screening for malignant neoplasm of prostate (principal)
CPT/HCPCS: 36415; 84153; G0103

== ENCOUNTER → 2024-01-14 | Outpatient (CLI) | payer BC, SELFPAY ==
--- NOTE | 2024-01-14 15:22 | NEURO ---
NCS and/or EMG Patient Report Ordering Doctor: Brinda Law NP DATE OF SERVICE: 01/14/24 True presents with numbness and tingling in both feet and lower legs. Electrodiagnostic findings: Peroneal motor nerve demonstrates prolonged latency with normal amplitude and reduced conduction velocity. Left peroneal motor nerve demonstrates prolonged latency with normal amplitude and reduced conduction velocity. Right tibial motor nerve demonstrates prolonged latency with reduced amplitude and reduced conduction velocity. Left tibial motor nerve demonstrates prolonged latency with normal amplitude and reduced conduction velocity. Prolonged right sural latency is noted. Borderline prolonged left superficial peroneal latency. Prolonged F?wave bilaterally. Prolonged H?reflex bilaterally. Needle EMG testing was performed the lower limbs. Motor units of increased amplitude and duration noted bilaterally in the tibialis anterior and gastrocnemius. Electrodiagnostic impression: This is an abnormal study in the lower limbs 1. Electrodiagnostic findings are suggestive of peripheral polyneuropathy, motor greater than sensory. There is evidence of axonal loss and demyelination. 2. No electrodiagnostic evidence is noted for lumbar radiculopathy Multi Select Codes Neurology Neurology Interp Codes: 32350-22 Musc test done w/n test comp (interp) (2) and 93491-15 Nrv cndj test 9-10 studies (interp)
== END | disposition home or self-care (01) ==
LOC: PSN 12:13
PROVIDERS: PCP Family Medicine; Referring Provider Nurse Practitioner Family; Visit Provider Nurse Practitioner Family
DX: G62.9 Polyneuropathy, unspecified (principal); R20.0 Anesthesia of skin; R20.2 Paresthesia of skin
CPT/HCPCS: 95886; 95911

== ENCOUNTER → 2024-03-05 | Outpatient (CLI) | payer BC, SELFPAY ==
[2024-03-05 15:36] LABS: Vitamin B12 559 pg/mL (211-911)
[2024-03-05 15:41] LABS: Hemoglobin A1c 5.5 % (3.8-5.6)
[2024-03-10 14:08] LABS: Alpha-1-Globulins 0.2 g/dL (0.0-0.4); Alpha-2-Globulins 0.8 g/dL (0.4-1.0); Free Kappa Light Chains 38.3 mg/L (3.3-19.4); Free Lambda Light Chains 12.5 mg/L (5.7-26.3); Gamma Globulin 1.5 g/dL (0.4-1.8); Immunoglobulin A 56 mg/dL (61-437); Immunoglobulin G 906 mg/dL (603-1613); Immunoglobulin M 934 mg/dL (20-172); PROEL- TOTAL PROTEIN 7.4 g/dL (6.0-8.5)
== END | disposition home or self-care (01) ==
LOC: MTLAB 09:41
PROVIDERS: PCP Family Medicine; Referring Provider Psychiatry & Neurology Neurology; Visit Provider Psychiatry & Neurology Neurology
DX: G62.9 Polyneuropathy, unspecified (principal)
CPT/HCPCS: 36415; 82607; 82746; 82784; 83036; 83883; 84165; 86334

== ENCOUNTER → 2024-03-18 | Outpatient (CLI) | payer BC, SELFPAY ==
[2024-03-18 15:32] LABS: Absolute Lymphocyte Count 2.66 X10^3/uL (0.83-4.51); Absolute Neutrophil Count 6.4 X10^3/uL (2.0-7.7); Basophil# 0.07 X10^3/uL; Basophil% 0.7 % (0-1); Eosinophil# 0.05 X10^3/uL; Eosinophils% 0.5 % (0-5); Hematocrit 43.6 % (40-54); Lymphocyte # 2.66 X10^3/ul (0.83-4.51); Lymphocyte % 26.4 % (19-41); Mean Corp Hgb Conc 32.1 g/dL (32-36); Mean Corpuscular Hgb 28.2 pg (27.0-32.0); Mean Corpuscular Volume 87.9 fL (80-94); Mean Platelet Vol. 10.5 fl (6.2-12.0); Monocyte# 0.86 X10^3/uL; Monocyte% 8.5 % (0-10); NRBC Flagged by Analyzer 0 % (0-5); Neutrophil # 6.41 X10^3/uL (2.7-7.7); Neutrophil % 63.5 % (47-70); Platelet Count 284 K/mm3 (150-450); RBC Distribution Width CV 12.1 % (11.6-14.6); RBC Distribution Width SD 39.4 fl (35.1-43.9); Red Blood Count 4.96 M/mm3 (4.6-6.2); White Blood Count 10.1 K/mm3 (4.4-11.0)
[2024-03-18 15:50] LABS: Erythrocyte Sedimentation Rate 24 mm/hr (0-20)
[2024-03-18 16:15] LABS: AST(SGOT) 26 U/L (15-37); Alanine Aminotransfer ALT/SGPT 43 U/L (16-61); Albumin, Serum 3.8 g/dL (3.2-5.0); Alkaline Phosphatase 99 U/L (45-117); Anion Gap 8 (5-15); BUN 14 mg/dL (7-18); BUN/Creat Ratio 11.7 RATIO (10-20); CRP < 2.90 mg/L (0.0-3.0); Calcium,Total 9.1 mg/dL (8.5-10.1); Chloride 105 mmol/L (98-107); EST Glomerular Filtration Rate 65 mL/min (>60); Est Glom Filt Rate - Afr Amer 79 mL/min (>60); Ferritin 92 ng/mL (26-388); Globulin 3.9 g/dL (2.2-4.2); Glucose 93 mg/dL (74-106); Iron 83 ug/dL (65-175); LDH 176 U/L (87-241); Potassium 4.2 mmol/L (3.5-5.1); Protein, Total 7.7 g/dL (6.4-8.2); Sodium Level 138 mmol/L (136-145)
== END | disposition home or self-care (01) ==
LOC: MTLAB 12:39
PROVIDERS: PCP Family Medicine; Referring Provider Family Medicine; Visit Provider Family Medicine
DX: R20.0 Anesthesia of skin (principal); D89.89 Other specified disorders involving the immune mechanism, not elsewhere classified
CPT/HCPCS: 36415; 80053; 82306; 82728; 83540; 83615; 84443; 85025; 85652; 86140

== ENCOUNTER → 2024-05-11 | Outpatient (CLI) | payer BC, SELFPAY ==
--- NOTE | 2024-05-11 06:46 | CT_ITS ---
PROCEDURE: SOFT TISSUE NECK WITH CONTRAST REASON FOR EXAM: MACROGLOBULINEMIA TECHNIQUE: CT of the soft tissues of the neck from the orbits to the upper mediastinum with intravenous contrast. CONTRAST: Isovue 370 VOLUME: 100mL One or more dose reduction techniques were used (e.g., Automated exposure control, adjustment of the mA and/or kV according to patient size, use of iterative reconstruction technique). RADIATION DOSE SUMMARY: CTDlvol: 22.5 mGy DLP: 3039.27 mGycm COMPARISON: None. FINDINGS: Airway: Unremarkable. Pharyngeal mucosal space: Unremarkable. Hypopharynx and larynx: Unremarkable. Parapharyngeal and retropharyngeal spaces: Unremarkable. Cheese Cutter and buccal spaces: Unremarkable. Salivary glands: Unremarkable. Lymph nodes: Multiple subcentimeter reactive lymph nodes are seen in the cervical region. Thyroid: Unremarkable. Vasculature: Mild calcified plaque of the carotid arteries. Orbits: Unremarkable. Paranasal sinuses and mastoids: Unremarkable. Lung apices: Clear. Upper mediastinum: Small benign-appearing mediastinal lymph nodes. Bones: Multilevel degenerative changes of the spine. CT/Soft Tissue Neck WITH Contrast IMPRESSION: Small benign-appearing mediastinal lymph nodes as well as scattered small cervi gilberto lymph nodes. Reading Location: [facility]
--- NOTE | 2024-05-11 06:46 | CT_ITS ---
PROCEDURE: CT CHEST, ABD, PEL W/CONTRAST ([facility]), 05/11/2024 REASON FOR EXAM: MACROGLOBULINEMIA-IV ONLY TECHNIQUE: CT chest, abdomen, and pelvis was performed with IV contrast. Multiplanar reformats were generated. CONTRAST: Isovue 370 VOLUME: 94mL RADIATION DOSE SUMMARY: CTDlvol: 22.8+ 20.95+ 18.34+ 23.27+ 24.49 mGy DLP: 3039.27 mGycm One or more dose reduction techniques were used (e.g., Automated exposure control, adjustment of the mA and/or kV according to patient size, use of iterative reconstruction technique). COMPARISON: None FINDINGS: Exam limited by beam hardening artifact related to the arms which were positioned at the sides rather than above the head. Mild motion limitation through the mid and lower lungs. Heart/pericardium: Unremarkable. Aorta: Unremarkable. Pulmonary arteries: Normal in caliber. Lymph nodes: Precarinal node, 11 mm short axis. Lungs/pleura: 5 mm LEFT lower lobe nodule (series 10 image 97). Minimal atelectasis/scarring. Airways: Unremarkable. Chest wall: Unremarkable. Liver: Unremarkable. Spleen: Unremarkable. Gallbladder: Unremarkable. Pancreas: Unremarkable. Adrenals: Unremarkable. Kidneys: Unremarkable. Bowel: Diverticulosis. Normal caliber appendix. Lymph nodes: Unremarkable. Vasculature: Trace atherosclerosis. Peritoneum: Unremarkable. Bladder: Underdistended and suboptimally evaluated, grossly unremarkable. Reproductive Organs: Unremarkable. Body Wall: Unremarkable. Musculoskeletal: Multilevel spondylosis greatest at L5-S1. Degenerative changes of the LEFT hip. Nonspecific 7 mm sclerotic focus in the LEFT sacral ala. Symmetric nonspecific but nonaggressive appearing lucencies in the bilateral posterior iliac bones abutting the SI joints may be degenerative or reflect intraosseous lipomas. CT/CT Chest, Abd, Pel w/Contrast IMPRESSION: 1. Nonspecific 7 mm sclerotic bony lesion in the LEFT sacral ala, possible bone island in the absence of known malignancy. This may be too small for resolution on bone scan. 2. 5 mm LEFT lower lobe nodule, statistically benign and requiring no specific follow-up in a low risk patient with no known history of malignancy. Otherwise, recommend follow-up CT chest in one year per the Fleischner society recommendations for pulmonary nodule follow-up, presuming no history of malignancy or known immunos uppression. 3. Borderline minimal mediastinal lymphadenopathy, nonspecific and potentially reactive in the absence of known malignancy. Correlate with medical history and recommend follow-up as indicated. 4. Additional description as above. Reading Location: [id number]
== END | disposition home or self-care (01) ==
LOC: CT 06:45
PROVIDERS: PCP Family Medicine; Referring Provider Internal Medicine Medical Oncology; Visit Provider Internal Medicine Medical Oncology
DX: C88.00 Waldenstrom macroglobulinemia not having achieved remission (principal); G62.9 Polyneuropathy, unspecified
CPT/HCPCS: 70491; 71260; 74177; Q9967

== ENCOUNTER → 2024-05-12 | Outpatient (CLI) | payer BC, SELFPAY ==
--- NOTE | 2024-05-12 08:55 | RAD_ITS ---
PROCEDURE: BONE SURVEY COMP(AXIAL APPEND) 05/12/2024 REASON FOR EXAM: MACROGLOBULINEMIA Left hip pain. History of prior bilateral radial fractures.. FINDINGS: Skull: No lytic or blastic bone lesion. C-T-L Spine: No evidence of compression fracture. No lytic or blastic bone lesion. Ribs: Unremarkable. AP Pelvis: Unremarkable. AP Humeri: No lytic or blastic bone lesion. AP Femurs: No lytic or blastic bone lesion. RAD/Bone Survey Comp(Axial&Append) IMPRESSION: NEGATIVE BONE SURVEY. Reading Location: [place] [id number]
== END | disposition home or self-care (01) ==
LOC: RAD 08:47
PROVIDERS: PCP Family Medicine; Referring Provider Internal Medicine Medical Oncology; Visit Provider Internal Medicine Medical Oncology
DX: C88.00 Waldenstrom macroglobulinemia not having achieved remission (principal)
CPT/HCPCS: 77075